=== PATIENT | male | born 1960 | race Caucasian/White ===

== ENCOUNTER 2017-04-15 19:15 | Inpatient (IN) | payer OTHER ==
[~2017-04-15] VITALS: Ht 167.6 cm; Wt 93.9 kg
[2017-04-15 19:19] VITALS: BP 151/94
--- NOTE | 2017-04-15 20:40 | NUR ---
PT TAKEN TO BED 6
--- NOTE | 2017-04-15 20:45 | NUR ---
PATIENT IS A 56 Y/O MALE WHO PRESENTS TO THE ED C/O VOMITING AND DIARRHEA X3 DAYS. PT STATES, "I CAN'T KEEP ANYTHING DOWN." PT DENIES NAUSEA, PAIN, CP, SOB AND FEVER. PT REPORTS CRAMPING SENSATION WHEN VOMITING. PT AAOX4, RR EVEN/UNLABORED. PT REPOSITIONED FOR COMFORT, BED IN LOWEST POSITION. ER MD DR. NEUMANN NOTIFIED. WILL CONTINUE TO MONITOR.
[2017-04-15] MEDS ORDERED: NACL 0.9% 1,000 ML IV ONE (21:00)
--- NOTE | 2017-04-15 21:00 | NUR ---
Dr. Flores evaluating patient at bedside.
[2017-04-15 21:24] LABS: HEMATOCRIT 49.7 % (36-52); HEMOGLOBIN 16.5 g/dL (12.0-18.0); MEAN CORPUSCULAR HEMOGLOBIN 30 pg (27-31); MEAN CORPUSCULAR HGB CONC 33 g/dL (33-37); MEAN CORPUSCULAR VOLUME 90 fL (80-94); PLATELET COUNT (AUTO) 296 K/uL (140-450); RED BLOOD CELL COUNT(AUTO) 5.55 MIL/uL (4.20-6.10); RED CELL DISTRIBUTION WIDTH 14.9 % (11.6-13.7); WHITE BLOOD COUNT (AUTO) 17.1 K/uL (4.8-10.8)
[2017-04-15 21:40] LABS: LYMPHOCYTES % (MANUAL) 1 % (20-46); MONOCYTES % (MANUAL) 8 % (5-12)
[2017-04-15 21:42] LABS: ANION GAP 12.1 (8-16); CARBON DIOXIDE 28.7 mmol/L (21-32); CREATININE 1.6 mg/dL (0.7-1.3); POTASSIUM 3.8 mmol/L (3.5-5.1)
[2017-04-15 21:48] LABS: ALBUMIN 3.9 g/dL (3.4-5.0); TOTAL BILIRUBIN 1.4 mg/dL (0.0-1.0)
[2017-04-15] MEDS ORDERED: DOCUSATE SODIUM 100 MG GELCAP PO PRN (22:40)
[2017-04-15] MEDS ORDERED: ACETAMINOPHEN 325 MG TAB PO PRN (22:40)
[2017-04-15] MEDS ORDERED: HYDROcodone/APAP 7.5/325 MG 1 TAB PO PRN (22:40)
[2017-04-15] MEDS ORDERED: MORPHINE SULFATE 2 MG/ML SYR IVP PRN (22:40)
--- NOTE | 2017-04-15 22:46 | NUR ---
Patient will be admitted to care of DR JOHNSON. Admited to TELE. Will go to room 119B. Belongings list completed. Report to WARREN BREWSTER.
[2017-04-15 22:50] VITALS: BP 146/90
--- NOTE | 2017-04-15 22:50 | NUR ---
PATIENT ADMITTED TO THE UNIT FOR OBSERVATION FROM THE ER. PATIENT IS ALERT, AWAKE, AND ORIENTED. PATIENT IS AMBULATORY. NO SIGNS AND SYMPTOMS OF DISTRESS NOTED. NO COMPLAINTS OF PAIN OR NAUSEA AT THIS TIME. IV SITE NOTED ON RIGHT AC, 18 GAUGE, SALINE LOCKED. PATIENT'S SKIN IS INTACT. BED IS IN LOWEST POSITION, SIDE RAILS UP AND CALL LIGHT WITHIN REACH. WILL CONTINUE TO MONITOR.
[2017-04-15 23:14] LABS: APPEARANCE,URINE CLOUDY (CLEAR); BILIRUBIN,URINE NEGATIVE (NEGATIVE); BLOOD, URINE NEGATIVE (NEGATIVE); COLOR,URINE YELLOW (YELLOW); LEUKOCYTE ESTERASE ,URINE NEGATIVE (NEGATIVE); NITRITE, URINE NEGATIVE (NEGATIVE); UGLUCOSE NEGATIVE (NEGATIVE)
[2017-04-15] MEDS: NACL 0.9% 1,000 ML IV SCH (23:19)
--- NOTE | 2017-04-15 23:20 | NUR ---
STARTED IVF- SODIUM CHLORIDE 0.9% 1000ML TO RUN AT 140ML/HR. IV SITE IS LOCATED ON RIGHT AC, 18 GAUGE. SITE IS ASYMPTOMATIC, INTACT, PATENT.
[2017-04-15 23:57] LABS: BARBITURATE, URINE NEG. ng/ml (NEG <=200); BENZODIAZEPINE, URINE NEG. ng/mL (NEG <=200); CANNABINOID, URINE NEG. ng/mL (NEG <=50); COCAINE, URINE NEG. ng/mL (NEG <=300); OPIATE, URINE NEG. ng/mL (NEG <=2000); PHENCYCLIDINE SCREEN,URINE NEG. ng/mL (NEG <=25)
[2017-04-16] VITALS: BP 143/85
[2017-04-16 00:17] LABS: RBC,URINE NONE SEEN /HPF (0-5); WBC,URINE NONE SEEN /HPF (0-5)
[2017-04-16 00:18] LABS: URINE AMORPHOUS URATE 4+ /HPF (None Seen)
[2017-04-16 00:25] LABS: CHOL/HDL RATIO 3.5 (1-4.5); FREE T4 (FREE THYROXINE) 0.8 ng/dL (0.76-1.46); MAGNESIUM 1.2 mg/dL (1.8-2.4); PHOSPHORUS 2.4 mg/dL (2.5-4.9); THYROID STIMULATING HORMONE 1.04 uIU/mL (0.34-3.74)
[2017-04-16 00:28] LABS: PROTHROMBIN TIME 11.2 secs (10.8-13.4)
[2017-04-16] MEDS ORDERED: MAG SULF 2000 MG/WATER PREMIX 50 ML IV ONE (02:30)
[2017-04-16] MEDS ORDERED: SODIUM PHOS / POTASSIUM PHOS 1 PKT PDR PO PRN (02:30)
--- NOTE | 2017-04-16 03:10 | NUR ---
MAGNESIUM SULFATE 2000MG/STERILE WATER PREMIX 50ML STARTED AT A RATE OF 25ML/HR, DUE TO MAGNESIUM LEVEL OF 1.2
[2017-04-16] MEDS ORDERED: LORazepam 2 MG/ML VIAL IVP PRN (03:15)
[2017-04-16] MEDS: ONDANSETRON 4 MG/2 ML VIAL IM/IVP PRN ×2 (03:18→08:25)
[2017-04-16 04:21] LABS: HEMATOCRIT 46.9 % (36-52); HEMOGLOBIN 15.3 g/dL (12.0-18.0); MEAN CORPUSCULAR HEMOGLOBIN 29 pg (27-31); MEAN CORPUSCULAR HGB CONC 33 g/dL (33-37); MEAN CORPUSCULAR VOLUME 89 fL (80-94); PLATELET COUNT (AUTO) 257 K/uL (140-450); RED BLOOD CELL COUNT(AUTO) 5.26 MIL/uL (4.20-6.10); RED CELL DISTRIBUTION WIDTH 15.1 % (11.6-13.7)
[2017-04-16 04:36] LABS: WHITE BLOOD COUNT (AUTO) 16.6 K/uL (4.8-10.8)
[2017-04-16 04:37] LABS: LYMPHOCYTES % (MANUAL) 5 % (20-46); MONOCYTES % (MANUAL) 4 % (5-12)
[2017-04-16] MEDS: LORazepam 1 MG TAB PO SCH ×3 (04:42→20:15)
[2017-04-16 04:46] LABS: ANION GAP 12.3 (8-16); CARBON DIOXIDE 25.9 mmol/L (21-32); CREATININE 1.4 mg/dL (0.7-1.3); POTASSIUM 3.2 mmol/L (3.5-5.1)
[2017-04-16 04:49] LABS: MAGNESIUM 1.8 mg/dL (1.8-2.4); PHOSPHORUS 3.3 mg/dL (2.5-4.9)
--- NOTE | 2017-04-16 05:10 | NUR ---
MAGNESIUM SULFATE 2000MG/STERILE WATER PREMIX 50ML FINISHED AT 0510
--- NOTE | 2017-04-16 06:52 | NUR ---
PATIENT PICKED UP AND TAKEN TO RADIOLOGY VIA WHEELCHAIR TO GET CT SCAN DONE.
[2017-04-16] MEDS ORDERED: metroNIDAZOLE 500 MG/NS PREMIX 100 ML IV SCH (06:55)
--- NOTE | 2017-04-16 07:26 | NUR ---
REPORT GIVEN AT BEDSIDE TO MORNING NURSE. PATIENT IS IN STABLE CONDITION.
--- NOTE | 2017-04-16 07:30 | NUR ---
RECEIVED REPORT FROM RN EMERGENCY ROOM RN. PATIENT IS AAOX4, HAS NS INFUSING AT 140 ML/HR TO RIGHT AC 18G. CLEAN DRY AND PATENT. LUNGS SOUNDS ARE CLEAR, BOWEL SOUNDS ARE ACTIVE. NO SIGNS AND SYMPTOMS OF ACUTE DISTRESS NOTED AT THIS TIME. REORIENTED PATIENT TO ROOM AND CALL LIGHT, VERBALIZED UNDERSTANDING. BED IN LOWEST POSITION, SIDERAILS UP X2, CALL LIGHT PLACED WITHIN REACH. WILL CONTINUE TO MONITOR.
[2017-04-16 08:00] VITALS: BP 136/93
[2017-04-16] MEDS: LEVOFLOXACIN 750 MG/D5W PREMIX 150 ML IV SCH (08:23)
[2017-04-16] MEDS: NACL 0.9% 1,000 ML IV SCH ×3 (08:23→20:20)
[2017-04-16] MEDS: MULTIVITAMIN 1 TAB PO SCH (08:24)
[2017-04-16] MEDS: THIAMINE 100 MG TAB PO SCH (08:24)
[2017-04-16] MEDS: FOLIC ACID 1 MG TAB PO SCH (08:25)
--- NOTE | 2017-04-16 09:55 | NUR ---
PATIENT HAS BEEN SCREENED AND CATEGORIZED HIGH NUTRITION RISK. PATIENT WILL BE SEEN WITHIN 1-2 DAYS OF ADMISSION. 04/16/17-04/17/[address]
--- NOTE | 2017-04-16 10:40 | NUR ---
PATIENT STATED THAT HE WAS STILL VOMITING. MADE DOCTOR AWARE.
--- NOTE | 2017-04-16 10:41 | NUR ---
CM NOTE INITIAL REVIEW FAXED TO [facility] [phone] MICHELE YARELIS EXT [phone]
[2017-04-16] MEDS ORDERED: METOCLOPRAMIDE 10 MG/2 ML INJ VIAL IVP PRN (11:10)
[2017-04-16 12:00] VITALS: BP 139/99
[2017-04-16] MEDS: metroNIDAZOLE 500 MG/NS PREMIX 100 ML IV SCH ×2 (12:44→20:16)
--- NOTE | 2017-04-16 12:57 | NUR ---
AT PATIENTS BEDSIDE WITH DR GOMEZ, PATIENT STATED HE IS STARTING TO FEEL BETTER. DR STATED HE WILL HAVE HIM START ON ORAL FLUIDS. WILL FOLLOW THROUGH WITH ORDERS.
[2017-04-16] MEDS ORDERED: POTASSIUM CHLORIDE 40 MEQ, LIDOCAINE 1% 25 MG in NACL 0.9% 250 ML IV SCH (14:00)
--- NOTE | 2017-04-16 14:28 | NUR ---
HUNG POTASSIUM, PATIENT ON TELE MONITOR. WILL CONTINUE TO MONITOR.
--- NOTE | 2017-04-16 14:51 | NUR ---
04/16/17 RD INITIAL ASSESSMENT COMPLETED PLEASE REFER TO NUTRITION ASSESSMENT UNDER CARE ACTIVITY FOR ESTIMATED NUTRITIONAL NEEDS. 1. CONTINUE NPO DIET 2. WHEN MEDICALLY FEASIBLE, INITIATE CLEAR LIQUID DIET AND ADVANCE TOLERATED TO CARDIAC 3. RD TO FOLLOW UP WITHIN2-3 DAYS; HIGH RISK LILIANA MEADOWS, TRENT
[2017-04-16 16:00] VITALS: BP 141/99
[2017-04-16] MEDS ORDERED: PANTOPRAZOLE 40 MG TABEC PO SCH (17:30)
--- NOTE | 2017-04-16 18:15 | NUR ---
PATIENT COMPLAINING OF STILL HAVING A LITTLE BIT OF DIARRHEA. NO SIGNS AND SYMPTOMS OF ACUTE DISTRESS NOTED AT THIS TIME.
--- NOTE | 2017-04-16 19:20 | NUR ---
ENDORSED PATIENT TO COMPLIANCE MANAGER RN FOR CONTINUITY OF CARE, IS AT THE BEDSIDE. PATIENT IN STABLE CONDITION.
--- NOTE | 2017-04-16 19:22 | NUR ---
RECEIVED REPORT FROM AM NURSE. PT IS AAOX4, NO SIGNS OF ACUTE DISTRESS NOTED. IS AT THE BEDSIDE. IV SITE IS ASYMPTOMATIC AND PATENT RUNNING NS. PLAN OF CARE DISCUSSED, PT VERBALIZED UNDERSTANDING. BED ON LOW POSITION, BILATERAL HALF SIDE RAILS UP, CALL LIGHT WITHIN REACH, WILL CONTINUE TO MONITOR PT.
[2017-04-16 20:00] VITALS: BP 141/99
[2017-04-17] VITALS (8 sets, daily range): BP systolic 137–158; BP diastolic 96–110
[2017-04-17] MEDS: LORazepam 1 MG TAB PO SCH ×3 (04:02→21:38)
[2017-04-17] MEDS: NACL 0.9% 1,000 ML IV SCH ×2 (04:03→08:00)
[2017-04-17] MEDS: metroNIDAZOLE 500 MG/NS PREMIX 100 ML IV SCH ×3 (04:03→21:38)
--- NOTE | 2017-04-17 04:15 | NUR ---
DR TERRAZAS NOTIFIED ABOUT PT HIGH BP 158/98. WILL AWAIT NEW ORDER.
--- NOTE | 2017-04-17 05:05 | NUR ---
NEW ORDER OF LISINOPRIL GIVEN TO PT FOR HIGH BLOOD PRESSURE, 158/98. PT TOLERATED WELL. WILL CONTINUE TO MONITOR.
[2017-04-17 05:19] LABS: BASOPHILS # (AUTO) 0.3 K/uL (0.00-0.22); EOSINOPHILS % (AUTO) 0.3 % (0.0-4.0); HEMATOCRIT 41.2 % (36-52); HEMOGLOBIN 13.3 g/dL (12.0-18.0); LYMPHOCYTES # (AUTO) 0.9 K/uL (2.0-11.5); LYMPHOCYTES % (AUTO) 14.3 % (20.5-51.1); MEAN CORPUSCULAR HEMOGLOBIN 29 pg (27-31); MEAN CORPUSCULAR HGB CONC 32 g/dL (33-37); MEAN CORPUSCULAR VOLUME 91 fL (80-94); MONOCYTES # (AUTO) 0.6 K/uL (0.8-1.0); MONOCYTES % (AUTO) 9.6 % (1.7-9.3); NEUTROPHILS # (AUTO) 4.8 K/uL (1.8-7.7); NEUTROPHILS % (AUTO) 71.8 % (42.2-75.2); PLATELET COUNT (AUTO) 208 K/uL (140-450); RED BLOOD CELL COUNT(AUTO) 4.53 MIL/uL (4.20-6.10); RED CELL DISTRIBUTION WIDTH 14.7 % (11.6-13.7); WHITE BLOOD COUNT (AUTO) 6.6 K/uL (4.8-10.8)
[2017-04-17] MEDS: LISINOPRIL 5 MG TAB PO SCH (05:29)
[2017-04-17 05:32] LABS: ANION GAP 8.4 (8-16); CREATININE 1.3 mg/dL (0.7-1.3); POTASSIUM 3.4 mmol/L (3.5-5.1)
[2017-04-17] MEDS: LEVOFLOXACIN 750 MG/D5W PREMIX 150 ML IV SCH (06:35)
--- NOTE | 2017-04-17 06:41 | NUR ---
LISINOPRIL GIVEN AT 0530 FOR HIGH BLOOD PRESSURE. REASSESS PT AFTER ADMINISTRATION OF LISINOPRIL FOR HIGH BP. NEW BLOOD PRESSURE READING IS 137/97. WILL CONTINUE TO MONITOR.
[2017-04-17 07:17] LABS: HEPATITIS A ANTIBODY IGM Negative (Negative); HEPATITIS B CORE AB TOTAL Negative (Negative); HEPATITIS B SURFACE AB Reactive (.); HEPATITIS B SURFACE ANTIGEN Negative (Negative)
[2017-04-17 07:17] LABS: T4 (THYROXINE) 4.7 ug/dL (4.5-12.0)
--- NOTE | 2017-04-17 07:27 | NUR ---
ENDORSED PT TO AM NURSE. PT IS IN STABLE CONDITION.
[2017-04-17 07:28] LABS: ALBUMIN 2.8 g/dL (3.4-5.0); BILIRUBIN,DIRECT 0.3 mg/dL (0.0-0.3)
--- NOTE | 2017-04-17 07:30 | NUR ---
RECEIVED REPORT FROM POOL FINISHER RN. PATIENT IS AAOX4. HAS NS INFUSING TO RIGHT AC AT 140ML/HR, SITE IS CLEAN, DRY, AND PATENT. NO SIGNS AND SYMPTOMS OF ACUTE DISTRESS NOTED AT THIS TIME. DISCUSSED PLAN OF CARE WITH PATIENT, HE VERBALIZED UNDERSTANDING. BED IN LOWEST POSITION, SIDERAILS UP X2, CALL LIGHT PLACED WITHIN REACH. WILL CONTINUE TO MONITOR.
--- NOTE | 2017-04-17 08:08 | NUR ---
MADE DR GOMEZ AWARE THAT PATIENTS BP WAS 149/101. WILL FOLLOW THROUGH WITH ORDERS. WILL CONTINUE TO MONITOR.
--- NOTE | 2017-04-17 08:16 | NUR ---
CM NOTE CONCURRENT REVIEW FAXED TO [facility] [phone] CM YARELIS EXT [id number] Addendum: 04/17/17 at 0822 by Zulma Rodríguez CM REF# [id number]
[2017-04-17] MEDS: MULTIVITAMIN 1 TAB PO SCH (08:43)
[2017-04-17] MEDS: THIAMINE 100 MG TAB PO SCH (08:43)
[2017-04-17] MEDS: PANTOPRAZOLE 40 MG TABEC PO SCH (08:43)
[2017-04-17] MEDS: FOLIC ACID 1 MG TAB PO SCH (08:43)
[2017-04-17] MEDS: LACTOBACILLUS RHAMNOSUS GG 1 EACH CAP PO SCH (08:43)
[2017-04-17] MEDS: LABETALOL 100 MG TAB PO SCH (08:44)
--- NOTE | 2017-04-17 08:44 | NUR ---
GAVE PATIENT LABETALOL 100 MG ORDERED FOR HIGH BP, WILL RECHECK BP. NO S/S OF DISTRESS NOTED AT THIS TIME. WILL CONTINUE TO MONITOR.
[2017-04-17] MEDS ORDERED: POTASSIUM CHLORIDE 40 MEQ, LIDOCAINE 1% 25 MG in NACL 0.9% 250 ML IV SCH (09:00)
[2017-04-17] MEDS ORDERED: PANTOPRAZOLE 40 MG INJ VIAL IVP SCH (09:00)
[2017-04-17] MEDS ORDERED: POTASSIUM CHLORIDE 10 MEQ TABER PO SCH (09:00)
[2017-04-17] MEDS ORDERED: LISINOPRIL 5 MG TAB PO SCH (09:00)
--- NOTE | 2017-04-17 09:34 | NUR ---
PATIENT BP IS 154/102. HAS NO S/S OF DISTRESS NOTED AT THIS TIME. MADE DR GOMEZ AWARE. WILL FOLLOW THROUGH WITH ORDERS.
--- NOTE | 2017-04-17 09:40 | NUR ---
ORDERED TO TRANSFER PATIENT FROM TELE TO MED SURG.
--- NOTE | 2017-04-17 09:42 | NUR ---
P.T. NOTES P.T. EVAL ORDER CANCELLED.
[2017-04-17] MEDS ORDERED: ENALAPRILAT 2.5 MG/2 ML VIAL IVP PRN (09:45)
--- NOTE | 2017-04-17 13:13 | NUR ---
STATING THAT HIS IV IN HIS RIGHT AC IS LEAKING, AND ACCIDENTALLY TUGGED ON IT. CATHETER IS INTACT, WILL REMOVE AND START A NEW IV. PATIENT HAS NO SIGNS AND SYMPTOMS OF DISTRESS NOTED AT THIS TIME.
--- NOTE | 2017-04-17 13:25 | NUR ---
STARTED A NEW IV ON PATIENTS LEFT WRIST, WITH 20G INFUSING NS AT 70 ML/HR. IV SITE IS CLEAN, DRY AND PATENT. CURRENTLY INFUSING POTASSIUM AT 68 ML/HR. WILL CONTINUE TO MONITOR.
--- NOTE | 2017-04-17 15:33 | NUR ---
REMOVED PATIENTS IV FROM LEFT WRIST DUE TO SLIGHT INFILTRATION. PATIENT STATED THAT IT HURT A LITTLE BIT. NO PHLEBITIS NOTED. CATHETER INTACT. APPLIED DRESSING, CLEAN AND DRY. WILL INSERT NEW IV TO CONTINUE FLUIDS.
--- NOTE | 2017-04-17 15:43 | NUR ---
IV STARTED TO RIGHT HAND. GOOD BLOOD RETURN, SECURED IV AND RECONNECTED FLUID. PATIENT HAS NO SIGN AND SYMPTOMS OF DISTRESS NOTED AT THIS TIME. WILL CONTINUE TO MONITOR.
--- NOTE | 2017-04-17 17:00 | NUR ---
IS AT THE BEDSIDE. ANSWERED ALL QUESTIONS THAT SHE HAD. WILL CONTINUE TO MONITOR PATIENT.
--- NOTE | 2017-04-17 19:17 | NUR ---
ENDORSED PATIENT TO TORTILLA MAKER RN FOR CONTINUITY OF CARE. PATIENT IN STABLE CONDITION.
--- NOTE | 2017-04-17 19:20 | NUR ---
RECEIVED REPORT FROM AM NURSE. PT FAMILY AT BEDSIDE. PT RESTING IN BED, AOX4, AMBULATORY, ABLE TO VERBALIZE NEEDS. PT DENIES CHEST PAIN, SOB OR S/S OF ACUTE DISTRESS. PT DENIES PAIN. PT DENIES N/V. PT C/O DIARRHEA IN THE AM, BUT STATED THAT HE FEELS THAT "IT IS GETTING BETTER." IV ACCESS ASYMPTOMATIC, PATENT AND INTACT. IVF INFUSING WELL. DISCUSSED AND REVIEWED PLAN OF CARE WITH PT. PT VERBALIZED UNDERSTANDING. ALL NEEDS MET. SAFETY MEASURES ENSURED. CALL LIGHT WITHIN REACH. WILL CONTINUE TO MONITOR.
--- NOTE | 2017-04-17 21:40 | NUR ---
ADMINISTERED DUE MEDS WITH EDUCATION. PT VERBALIZED UNDERSTANDING, TOLERATED MEDS WELL. ALL NEEDS MET. IVPB INFUSING WELL. SAFETY MEASURES ENSURED. CALL LIGHT WITHIN REACH. WILL CONTINUE TO MONITOR.
[2017-04-18] VITALS: BP 137/85
--- NOTE | 2017-04-18 00:10 | NUR ---
PT SLEEPING COMFORTABLY, AROUSABLE TO NAME. NO S/S OF ACUTE DISTRESS ALL NEEDS MET. IVF INFUSING WELL. SAFETY MEASURES ENSURED. CALL LIGHT WITHIN REACH. WILL CONTINUE TO MONITOR.
[2017-04-18] MEDS: NACL 0.9% 1,000 ML IV SCH ×2 (03:15→05:23)
[2017-04-18] MEDS: metroNIDAZOLE 500 MG/NS PREMIX 100 ML IV SCH (05:22)
[2017-04-18] MEDS: LORazepam 1 MG TAB PO SCH (05:23)
[2017-04-18] MEDS: LEVOFLOXACIN 750 MG/D5W PREMIX 150 ML IV SCH (06:43)
[2017-04-18 06:55] LABS: ANION GAP 10.7 (8-16); CARBON DIOXIDE 26.8 mmol/L (21-32); CREATININE 1.1 mg/dL (0.7-1.3); POTASSIUM 3.5 mmol/L (3.5-5.1)
--- NOTE | 2017-04-18 07:20 | NUR ---
RECEIVED PT FROM STUBBER NURSE AT BEDSIDE. PT IS A&OX4. PT HAS IV ON R HAND 22 G RUNNING NS@70ML/HR. PT HAS NO COMPLAINTS AT THIS TIME, STATED HE DID NOT HAVE DIARRHEA LAST NIGHT. CALL LIGHT WITHIN REACH. WILL CONTINUE TO MONITOR.
[2017-04-18 07:27] LABS: BASOPHILS # (AUTO) 0.2 K/uL (0.00-0.22); BASOPHILS % (AUTO) 2.3 % (0.0-2.0); EOSINOPHILS % (AUTO) 0.5 % (0.0-4.0); HEMATOCRIT 39.5 % (36-52); HEMOGLOBIN 13.2 g/dL (12.0-18.0); LYMPHOCYTES # (AUTO) 1.1 K/uL (2.0-11.5); LYMPHOCYTES % (AUTO) 16.3 % (20.5-51.1); MEAN CORPUSCULAR HEMOGLOBIN 30 pg (27-31); MEAN CORPUSCULAR HGB CONC 33 g/dL (33-37); MEAN CORPUSCULAR VOLUME 91 fL (80-94); MONOCYTES # (AUTO) 0.6 K/uL (0.8-1.0); NEUTROPHILS % (AUTO) 72.9 % (42.2-75.2); PLATELET COUNT (AUTO) 196 K/uL (140-450); RED BLOOD CELL COUNT(AUTO) 4.35 MIL/uL (4.20-6.10); RED CELL DISTRIBUTION WIDTH 14.6 % (11.6-13.7); WHITE BLOOD COUNT (AUTO) 6.9 K/uL (4.8-10.8)
[2017-04-18 08:00] VITALS: BP 136/92
[2017-04-18] MEDS: FOLIC ACID 1 MG TAB PO SCH (08:45)
[2017-04-18] MEDS: LISINOPRIL 5 MG TAB PO SCH (08:45)
[2017-04-18] MEDS: THIAMINE 100 MG TAB PO SCH (08:46)
[2017-04-18] MEDS: LABETALOL 100 MG TAB PO SCH (08:46)
[2017-04-18] MEDS: MULTIVITAMIN 1 TAB PO SCH (08:46)
[2017-04-18] MEDS: PANTOPRAZOLE 40 MG TABEC PO SCH (08:46)
[2017-04-18] MEDS: LACTOBACILLUS RHAMNOSUS GG 1 EACH CAP PO SCH (08:46)
--- NOTE | 2017-04-18 09:30 | NUR ---
PT IS SLEEPING COMFORTABLY IN BED. CALL LIGHT WITHIN REACH. WILL CONTINUE TO MONITOR.
--- NOTE | 2017-04-18 10:00 | NUR ---
04/18/2017 RD FOLLOW UP COMPLETED PLEASE REFER TO NUTRITION PROGRESS NOTE UNDER CARE ACTIVITY FOR ESTIMATED NUTRITION NEEDS. RD RECOMMENDATIONS: 1. CONTINUE ON REGULAR DIET TOLERATED. 2. CONSULT RDN PRN. 3. RD WILL F/U 5-7 DAYS; LOW RISK. MARYCARMEN LA MS, RDN
[2017-04-18] MEDS ORDERED: DOCU-299 PO (10:58)
[2017-04-18 11:18] VITALS: BP 136/92
--- NOTE | 2017-04-18 11:30 | NUR ---
GAVE DC INSTRUCTION TO PT. PT VERBALIZED UNDERSTANDING AND SIGNED ALL APPROPRIATE PAPERWORK. REMOVED IV CANNULA INTACT. ID BANDS REMOVED. CALL LIGHT WITHIN REACH. WILL CONTINUE TO MONITOR.
[2017-04-18] MEDS ORDERED: METO25TA PO (11:35)
--- NOTE | 2017-04-18 11:57 | NUR ---
WHEELED PT OUT OF HOSPITAL. PT IN STABLE CONDITION. TOOK ALL BELONGINGS.
== END 2017-04-18 11:57 | disposition home or self-care (01) | DRG 391 ==
LOC: MED 19:15 → MTU 22:43 → OBSVTOIN 04-16 09:49
PROVIDERS: ADMIT Family Medicine; ATTEND Family Medicine
DX: A08.4 Viral intestinal infection, unspecified (principal); N17.0 Acute kidney failure with tubular necrosis; K92.0 Hematemesis; E44.0 Moderate protein-calorie malnutrition; E83.39 Other disorders of phosphorus metabolism; E83.42 Hypomagnesemia; E78.5 Hyperlipidemia, unspecified; F10.20 Alcohol dependence, uncomplicated; E66.9 Obesity, unspecified; Z68.32 Body mass index [BMI] 32.0-32.9, adult; E87.6 Hypokalemia; K80.20 Calculus of gallbladder without cholecystitis without obstruction; I10 Essential (primary) hypertension; M16.11 Unilateral primary osteoarthritis, right hip
CPT/HCPCS: 36415; 71010; 76705; 80048; 80053; 80076; 80305; 81001; 82150; 83036; 83690; 83735; 83880; 84100; 84436; 84439; 84443; 84479; 85025; 85610; 85730; 86704; 86706; 86708; 86709; 86803; 87081; 87340; 99285; G0378; G0482; J1956; J2001; J2405; J2765; J3475; J3480; J3490; J7030; Q0092

== ENCOUNTER 2017-07-23 03:50 | Inpatient (IN) | payer SELFPAY ==
[~2017-07-23] VITALS: Ht 170.2 cm; Wt 90.7 kg
[~2017-07-23 03:50] MED LIST: DOCU-299 PO; METO25TA PO
[2017-07-23 03:57] VITALS: BP 144/98
--- NOTE | 2017-07-23 04:00 | NUR ---
PT C/O ABD PAIN SINCE 1 AM, PT HAS HAD N/V, ABD IS ROUND, SOFT, NON TENDER, ACTIVE BS X4. PT STATES LBM WAS TODAY AND WAS NORMAL. PT DENIES UTI SYMPTOMS.
--- NOTE | 2017-07-23 04:04 | NUR ---
PT TAKEN TO BED 3
[2017-07-23] MEDS ORDERED: NACL 0.9% 1,000 ML IV ONE (04:15)
[2017-07-23] MEDS ORDERED: ONDANSETRON 4 MG/2 ML VIAL IVP ONE (04:15)
[2017-07-23] MEDS ORDERED: KETOROLAC 30 MG/ML VIAL IVP ONE (04:15)
[2017-07-23 04:28] LABS: HEMATOCRIT 44.8 % (36-52); HEMOGLOBIN 14.5 g/dL (12.0-18.0); MEAN CORPUSCULAR HEMOGLOBIN 29 pg (27-31); MEAN CORPUSCULAR HGB CONC 32 g/dL (33-37); MEAN CORPUSCULAR VOLUME 91 fL (80-94); PLATELET COUNT (AUTO) 268 K/uL (140-450); RED BLOOD CELL COUNT(AUTO) 4.93 MIL/uL (4.20-6.10); RED CELL DISTRIBUTION WIDTH 13.1 % (11.6-13.7)
[2017-07-23 04:29] LABS: APPEARANCE,URINE CLEAR (CLEAR); BILIRUBIN,URINE NEGATIVE (NEGATIVE); BLOOD, URINE TRACE-I (NEGATIVE); COLOR,URINE YELLOW (YELLOW); LEUKOCYTE ESTERASE ,URINE 1+ (NEGATIVE); NITRITE, URINE NEGATIVE (NEGATIVE); PH,URINE 5.5 (5.0-9.0); UGLUCOSE NEGATIVE (NEGATIVE)
[2017-07-23 04:39] LABS: ANION GAP 16.2 (8-16); CREATININE 1.2 mg/dL (0.7-1.3); POTASSIUM 3.2 mmol/L (3.5-5.1)
[2017-07-23 04:44] LABS: ALBUMIN 3.4 g/dL (3.4-5.0); TOTAL BILIRUBIN 1.7 mg/dL (0.0-1.0)
[2017-07-23 04:52] LABS: WHITE BLOOD COUNT (AUTO) 17.3 K/uL (4.8-10.8)
[2017-07-23 04:53] LABS: LYMPHOCYTES % (MANUAL) 8 % (20-46); MONOCYTES % (MANUAL) 7 % (5-12)
--- NOTE | 2017-07-23 04:53 | NUR ---
PT RETURN FROM CT
[2017-07-23 04:54] LABS: RBC,URINE 3-10 (FEW) /HPF (0-5)
--- NOTE | 2017-07-23 05:55 | NUR ---
PT IN BED, SLEEPING, WILL CONTINUE TO MONITOR.
[2017-07-23] MEDS ORDERED: MORPHINE SULFATE 4 MG/ML SYR IVP ONE (06:20)
[2017-07-23] MEDS ORDERED: ONDANSETRON 4 MG/2 ML VIAL IVP PRN (06:30)
--- NOTE | 2017-07-23 07:00 | NUR ---
Admitted from ED , with chief complaint of ABDOMINAL PAIN AND VOMITING SINCE 12 MN LAST NIGHT. PT AAOX4. NO SOB NOTED. NO C/O PAIN AT THIS TIME. IV TO LT AC PATENT AND INTACT. CHEST CLEAR. ABDOMEN SOFT, BOWEL SOUNDS PRESENT. NO EDEMA NOTED. SKIN INTACT. PT IS A 56 y/o ,Male, Cooperative,oriented to call light, bed, phone,television, bathroom, smoking policy,visiting hours, procedures, ID bracelet on. Belongings list checked. INSTRUCTED PT TO CALL FOR ASSISTANCE, CALL LIGHT WITHIN REACH. PT VERBALIZED UNDERSTANDING.
--- NOTE | 2017-07-23 07:03 | NUR ---
Patient will be admitted to care of DR TADEO. Admited to TELE. Will go to room 115. Belongings list completed. Report to HIPOLITO.
[2017-07-23 07:13] LABS: BARBITURATE, URINE NEG. ng/ml (NEG <=200); BENZODIAZEPINE, URINE NEG. ng/mL (NEG <=200); CANNABINOID, URINE NEG. ng/mL (NEG <=50); COCAINE, URINE NEG. ng/mL (NEG <=300); OPIATE, URINE NEG. ng/mL (NEG <=2000); PHENCYCLIDINE SCREEN,URINE NEG. ng/mL (NEG <=25)
[2017-07-23 07:15] VITALS: BP 157/107
[2017-07-23 07:22] LABS: CHOL/HDL RATIO 3.3 (1-4.5); FREE T4 (FREE THYROXINE) 1.11 ng/dL (0.76-1.46); MAGNESIUM 1.9 mg/dL (1.8-2.4); PHOSPHORUS 2.7 mg/dL (2.5-4.9); THYROID STIMULATING HORMONE 1.9 uIU/mL (0.34-3.74)
[2017-07-23 08:14] LABS: PROTHROMBIN TIME 10.2 secs (10.8-13.4)
[2017-07-23] MEDS: NACL 0.9% 1,000 ML IV SCH ×2 (08:41→12:06)
--- NOTE | 2017-07-23 08:59 | NUR ---
PATIENT HAS BEEN SCREENED AND CATEGORIZED LOW NUTRITION RISK. PATIENT WILL BE SEEN WITHIN 7 DAYS OF ADMISSION. 07/29/[address]
[2017-07-23] MEDS: DOCUSATE SODIUM 100 MG GELCAP PO SCH ×2 (09:00→20:24)
--- NOTE | 2017-07-23 09:00 | NUR ---
[facility]SA SWAB COLLECTED AND SENT TO LAB.
[2017-07-23] MEDS: HYDROmorphone PFS 2 MG/ML SYR IVP PRN ×3 (09:24→22:04)
[2017-07-23] MEDS ORDERED: KETOROLAC 30 MG/ML VIAL IM PRN (10:05)
[2017-07-23] MEDS ORDERED: POTASSIUM CHLORIDE 40 MEQ, LIDOCAINE 1% 25 MG in NACL 0.9% 250 ML IV SCH (10:30)
[2017-07-23 12:00] VITALS: BP 155/104
[2017-07-23] MEDS: PIPER/TAZO 3.375GM/D5W PREMIX 50 ML IV SCH ×3 (12:38→23:02)
--- NOTE | 2017-07-23 13:00 | NUR ---
PT SEEN BY DR. Matthew JEFFERSON WITH NEW ORDERS.
[2017-07-23] MEDS ORDERED: LOSARTAN 50 MG TAB PO SCH (14:00)
[2017-07-23] MEDS: POTASSIUM CHLORIDE 10 MEQ in LACTATED RINGERS 1,000 ML IV SCH ×2 (14:55→20:23)
[2017-07-23 16:00] VITALS: BP 160/99
--- NOTE | 2017-07-23 16:30 | NUR ---
PT RESTING. NO SOB NOTED. NO SIGNS OF PAIN.
--- NOTE | 2017-07-23 19:07 | NUR ---
DR. VIDAL HERE TO SEE PT. ENDORSED TO NEXT SHIFT NURSE FOR CONTINUITY OF CARE.
--- NOTE | 2017-07-23 19:20 | NUR ---
RECEIVED PT AWAKE ON BED WITH AT BEDSIDE, COMPLAINING OF ABDOMINAL PAIN, WILL MEDICATE PRN, VITAL SIGNS TAKEN, BP ELEVATED, DENIES CHEST PAIN, NO SOB NOTED, MAINTAINED ON NPO EXCEPT MEDS, IVF INFUSING WELL, PLAN OF CARE DISCUSSED, MAINTAINED ON CONTACT ISOLATION, CALL LIGHT WITHIN REACH.
[2017-07-23] MEDS: KETOROLAC 30 MG/ML VIAL IVP PRN (19:40)
--- NOTE | 2017-07-23 19:40 | NUR ---
PT ASKING FOR DILAUDID, MADE AWARE THAT ITS TIME YET, TORADOL IVP GIVEN FOR PAIN, WILL REASSESS, ALL NEEDS ATTENDED.
[2017-07-23 20:00] VITALS: BP 166/97
--- NOTE | 2017-07-23 20:30 | NUR ---
VERBALIZED PAIN SUBSIDING, REFUSED DUE COLACE, RISK AND BENEFITS EXPLAINED BUT STILL REFUSED SAID "I DON'T HAVE A PROBLEM WITH MY STOOL", AMBULATED TO WITH STEADY GAIT, MONITORED CLOSELY.
--- NOTE | 2017-07-23 21:21 | NUR ---
DR OLMOS MADE AWARE OF ELEVATED BP, PT WAS IN PAIN DURING VITAL SIGNS TAKING, MADE AWARE OF PAIN MED Q6H PRN, SHE WILL CHANGE IT TO Q4H PRN, WILL CARRY OUT ORDERS.
[2017-07-24] VITALS: BP 151/104
[2017-07-24] MEDS: HYDROmorphone PFS 2 MG/ML SYR IVP PRN ×5 (01:57→20:23)
[2017-07-24] MEDS: POTASSIUM CHLORIDE 10 MEQ in LACTATED RINGERS 1,000 ML IV SCH ×3 (02:00→19:41)
[2017-07-24 04:00] VITALS: BP 162/100
[2017-07-24] MEDS: KETOROLAC 30 MG/ML VIAL IVP PRN (05:27)
[2017-07-24] MEDS: PIPER/TAZO 3.375GM/D5W PREMIX 50 ML IV SCH ×4 (05:29→23:48)
--- NOTE | 2017-07-24 05:30 | NUR ---
PT COMPLAINING OF PAIN, DILAUDID NOT YET DUE, CAN'T WAIT FOR DILAUDID, GAVE TORADOL IVP FOR PAIN, DR VIRGEN CAME IN THE ROOM AND CHECKED ON PT, UPDATED ON PT'S CONDITION, MADE AWARE OF ELEVATED BLOOD PRESSURE, SHE SAID WILL WAIT ON HOW HE RESPOND TO COZAAR AND BECAUSE ALSO HE IS IN PAIN, IV ANTIBIOTIC ADMINISTERED, MAINTAINED ON NPO EXCEPT MEDS, MONITORED CLOSELY.
--- NOTE | 2017-07-24 07:10 | NUR ---
PT SITTING ON BEDSIDE CHAIR, NO DISTRESS NOTED, BEDSIDE REPORT GIVEN TO NARCISA LANGFORD FOR CONTINUITY OF CARE. Addendum: 07/24/17 at 0723 by Pablito Chacon RN CHARTED ON WRONG PT
--- NOTE | 2017-07-24 07:15 | NUR ---
PT SLEEPING, NO SIGNS OF DISTRESS, REPORT GIVEN TO RN HIPOLITO FOR CONTINUITY OF CARE.
[2017-07-24 07:20] LABS: BASOPHILS % (AUTO) 0.2 % (0.0-2.0); EOSINOPHILS % (AUTO) 0.1 % (0.0-4.0); HEMATOCRIT 41.1 % (36-52); HEMOGLOBIN 13.7 g/dL (12.0-18.0); LYMPHOCYTES # (AUTO) 0.4 K/uL (2.0-11.5); LYMPHOCYTES % (AUTO) 3.4 % (20.5-51.1); MEAN CORPUSCULAR HEMOGLOBIN 30 pg (27-31); MEAN CORPUSCULAR HGB CONC 33 g/dL (33-37); MEAN CORPUSCULAR VOLUME 90 fL (80-94); MONOCYTES # (AUTO) 1.3 K/uL (0.8-1.0); MONOCYTES % (AUTO) 10.2 % (1.7-9.3); NEUTROPHILS # (AUTO) 11.1 K/uL (1.8-7.7); NEUTROPHILS % (AUTO) 86.1 % (42.2-75.2); PLATELET COUNT (AUTO) 212 K/uL (140-450); RED BLOOD CELL COUNT(AUTO) 4.56 MIL/uL (4.20-6.10); RED CELL DISTRIBUTION WIDTH 13.7 % (11.6-13.7); WHITE BLOOD COUNT (AUTO) 12.8 K/uL (4.8-10.8)
--- NOTE | 2017-07-24 07:30 | NUR ---
RECEIVED ON BED AAOX4. NO SOB NOTED. NO C/O PAIN AT THIS TIME. IV TO LT AC PATENT AND INTACT. CHEST DIMINISHED AIR ENTRY TO THE BASES. ABDOMEN SOFT, BOWEL SOUNDS PRESENT. NO EDEMA NOTED. NPO MAINTAINED, PLAN OF CARE DISCUSSED. INSTRUCTED PT TO CALL FOR ASSISTANCE, CALL LIGHT WITHIN REACH, PT VERBALIZED UNDERSTANDING.
[2017-07-24 07:49] LABS: ANION GAP 15.6 (8-16); POTASSIUM 3.6 mmol/L (3.5-5.1)
[2017-07-24 07:50] LABS: CREATININE 1.2 mg/dL (0.7-1.3)
[2017-07-24 07:52] LABS: ALBUMIN 2.9 g/dL (3.4-5.0); BILIRUBIN,DIRECT 0.9 mg/dL (0.0-0.3); TOTAL BILIRUBIN 1.7 mg/dL (0.0-1.0)
[2017-07-24 08:00] VITALS: BP 150/105
[2017-07-24] MEDS: ATORVASTATIN 20 MG TAB PO SCH (08:17)
[2017-07-24] MEDS: DOCUSATE SODIUM 100 MG GELCAP PO SCH ×2 (08:17→20:22)
[2017-07-24] MEDS: LACTOBACILLUS RHAMNOSUS GG 1 EACH CAP PO SCH (08:18)
[2017-07-24] MEDS: LOSARTAN 50 MG TAB PO SCH ×2 (08:18→20:23)
[2017-07-24 08:24] LABS: AMYLASE 572 U/L (25-115); LIPASE 3746 U/L (73-393)
[2017-07-24] MEDS ORDERED: LOSARTAN 50 MG TAB PO SCH (09:00)
[2017-07-24 09:08] LABS: LACTATE DEHYDROGENASE 192 IU/L (121-224)
--- NOTE | 2017-07-24 09:30 | NUR ---
PT RESTING. NO SOB NOTED. NO SIGNS OF PAIN.
[2017-07-24 09:41] LABS: MAGNESIUM 1.7 mg/dL (1.8-2.4)
--- NOTE | 2017-07-24 11:30 | NUR ---
PT RESTING. NO SOB NOTED. NO SIGNS OF PAIN.
[2017-07-24 12:00] VITALS: BP 156/99
--- NOTE | 2017-07-24 12:40 | NUR ---
PT SEEN BY DR. VIDAL WITH NEW ORDER.
[2017-07-24 16:00] VITALS: BP 151/105
--- NOTE | 2017-07-24 16:00 | NUR ---
PT'S LATEST BP : 151/105 MMHG; PT C/O ABDOMINAL PAIN 7/10 ON THE PAIN SCALE. WILL MEDICATE PT WITH PAIN MEDS. DR. VIRGEN NOTIFIED.
--- NOTE | 2017-07-24 16:15 | NUR ---
PT SIGNED THE CONSENT FOR SURGERY EXPLAINED BY DR. VIDAL AT THE BEDSIDE EARLIER. PT VERBALIZED UNDERSTANDING.
[2017-07-24] MEDS ORDERED: MAG SULF 2000 MG/WATER PREMIX 50 ML IV SCH (17:00)
--- NOTE | 2017-07-24 19:18 | NUR ---
PT AWAKE, TALKING TO AT THE BEDSIDE. NO SOB NOTED. NO C/O PAIN AT THIS TIME. ENDORSED TO NEXT SHIFT NURSE FOR CONTINUITY OF CARE.
--- NOTE | 2017-07-24 19:20 | NUR ---
RECEIVED REPORT FROM DAY SHIFT NURSE. AAOX4. AT BEDSIDE. NO C/O PAIN AT THIS TIME. IV TO LEFT AC #18G, PATENT AND INTACT. DISCUSSED PLAN OF CARE, PT AND VERBALIZED UNDERSTANDING. WILL CONTINUE TO MONITOR. CALL LIGHT WITHIN REACH.
--- NOTE | 2017-07-24 19:28 | NUR ---
DR. VIDAL CALLED AND STATED THAT PT'S SURGERY IS POSTPONED ON THURSDAY AT 1200 NOON. TRE BREWSTER ASSIGNED TO THE NIGHT MADE AWARE AND WILL INFORM PT.
--- NOTE | 2017-07-24 19:30 | NUR ---
INFORMED PT AND THAT DR. VIDAL CALLED AND SURGERY WILL BE ON THURSDAY AT 1200. PT SAID "OK".
[2017-07-24 20:00] VITALS: BP 154/100
--- NOTE | 2017-07-24 20:21 | NUR ---
PT C/O ABDOMINAL PAIN 8/10 ON PAIN SCALE. WILL MEDICATE PT.
--- NOTE | 2017-07-24 22:30 | NUR ---
PT IN BED, WATCHING TV. NO C/O PAIN AT THIS TIME. CALL LIGHT WITHIN REACH.
[2017-07-25] VITALS: BP 162/104
[2017-07-25] MEDS: HYDROmorphone PFS 2 MG/ML SYR IVP PRN ×2 (00:02→05:11)
--- NOTE | 2017-07-25 00:03 | NUR ---
V/S TAKEN. BP 162/104, HR 79, RR 18, O2 SAT 94%. PT C/O ABDOMINAL PAIN 02/12. REPORTED V/S TO DR. OLMOS. NO NEW ORDER. DILAUDID 1 MG IVP GIVEN ORDERED FOR PAIN.
--- NOTE | 2017-07-25 00:03 | NUR ---
V/S TAKEN. BP 162/104, HR 79, RR 18, O2 SAT 94%. PT C/O ABDOMINAL PAIN 02/12. REPORTED V/S TO DR. OLMOS. NO NEW ORDER. DILAUDID 0.5 MG IVP GIVEN ORDERED FOR PAIN. Addendum: 07/25/17 at 0018 by Teto Agustin RN ERROR
--- NOTE | 2017-07-25 01:50 | NUR ---
PT SLEEPING, AROUSES EASILY. NO S/S OF DISTRESS NOTED. CALL LIGHT WITHIN REACH.
--- NOTE | 2017-07-25 03:50 | NUR ---
PT SLEEPING. NO S/S OF PAIN OR DISCOMFORT. CALL LIGHT WITHIN REACH.
[2017-07-25 04:00] VITALS: BP 158/98
[2017-07-25] MEDS: POTASSIUM CHLORIDE 10 MEQ in LACTATED RINGERS 1,000 ML IV SCH ×3 (05:02→14:09)
[2017-07-25] MEDS: PIPER/TAZO 3.375GM/D5W PREMIX 50 ML IV SCH ×4 (05:04→23:42)
--- NOTE | 2017-07-25 05:15 | NUR ---
PT C/O ABDOMINAL PAIN 8/10 ON PAIN SCALE. DILAUDID 1 MG IVP GIVEN. DAVID LIGHT WITHIN REACH. WILL CONTINUE TO MONITOR.
--- NOTE | 2017-07-25 07:05 | NUR ---
ENDORSED PT TO DAY SHIFT NURSE. PT IN STABLE CONDITION.
--- NOTE | 2017-07-25 07:06 | NUR ---
RECEIVED REPORT FROM COACH TOUR DRIVER NURSE, MARLENE, AT BEDSIDE FOR CONTINUITY OF CARE. AAOX4. NO C/O PAIN AT THIS TIME. IV TO LEFT AC #18G, PATENT AND INTACT RUNNING POTASSIUM CHLORIDE 10MEQ IN LACTATED RINGERS AT 130 ML/HR. DISCUSSED PLAN OF CARE, PT VERBALIZED UNDERSTANDING. SAFETY PRECAUTIONS IN PLACE, CALL LIGHT WITHIN REACH. WILL CONTINUE TO MONITOR.
[2017-07-25 07:36] LABS: HEMATOCRIT 38.3 % (36-52); HEMOGLOBIN 12.8 g/dL (12.0-18.0); MEAN CORPUSCULAR HEMOGLOBIN 30 pg (27-31); MEAN CORPUSCULAR HGB CONC 34 g/dL (33-37); MEAN CORPUSCULAR VOLUME 89 fL (80-94); PLATELET COUNT (AUTO) 212 K/uL (140-450); RED BLOOD CELL COUNT(AUTO) 4.29 MIL/uL (4.20-6.10); RED CELL DISTRIBUTION WIDTH 13.5 % (11.6-13.7); WHITE BLOOD COUNT (AUTO) 12.2 K/uL (4.8-10.8)
[2017-07-25 08:00] VITALS: BP 150/115
[2017-07-25 08:58] LABS: ANION GAP 11.4 (8-16); CARBON DIOXIDE 28.4 mmol/L (21-32); CREATININE 1.1 mg/dL (0.7-1.3); POTASSIUM 3.8 mmol/L (3.5-5.1)
[2017-07-25 09:11] LABS: LYMPHOCYTES % (MANUAL) 8 % (20-46); MONOCYTES % (MANUAL) 8 % (5-12)
[2017-07-25] MEDS: ATORVASTATIN 20 MG TAB PO SCH (09:27)
[2017-07-25] MEDS: LACTOBACILLUS RHAMNOSUS GG 1 EACH CAP PO SCH (09:27)
[2017-07-25] MEDS: DOCUSATE SODIUM 100 MG GELCAP PO SCH ×2 (09:28→20:08)
[2017-07-25] MEDS: LOSARTAN 50 MG TAB PO SCH (09:28)
--- NOTE | 2017-07-25 09:28 | NUR ---
ADMINISTERED MORNING MEDICATIONS, PATIENT TOLERATED THEM WELL. NO SIGNS OF DISTRESS OR SOB NOTED. PATIENT DENIES PAIN AT THIS TIME. SAFETY PRECAUTIONS IN PLACE, CALL LIGHT WITHIN REACH,WILL CONTINUE TO MONITOR PATIENT.
--- NOTE | 2017-07-25 10:24 | NUR ---
LAB CALLED WITH BLOOD CULTURES POSITIVE FOR ECOLI AND MDRO.
[2017-07-25] MEDS: KETOROLAC 30 MG/ML VIAL IVP PRN ×2 (10:25→22:24)
--- NOTE | 2017-07-25 10:25 | NUR ---
PATIENT COMPLAINED OF ABD PAIN 12/13. TORADOL IVP PRN GIVEN. PATIENT TOLERATED IT WELL. SAFETY AND ISOLATION PRECAUTION IN PLACE, BED ON LOWEST SETTING, CALL LIGHT WITHIN REACH. WILL CONTINUE TO MONITOR PATIENT.
[2017-07-25 11:15] LABS: PROTHROMBIN TIME 10.8 secs (10.8-13.4)
[2017-07-25 12:00] VITALS: BP 165/111
[2017-07-25 12:10] LABS: ALBUMIN 2.7 g/dL (3.4-5.0); MAGNESIUM 2.5 mg/dL (1.8-2.4); PHOSPHORUS 3.4 mg/dL (2.5-4.9); TOTAL BILIRUBIN 1.4 mg/dL (0.0-1.0)
[2017-07-25] MEDS ORDERED: LOSARTAN 50 MG TAB PO SCH (13:06)
--- NOTE | 2017-07-25 13:15 | NUR ---
PATIENT RESTING, FAMILY AT BEDSIDE. SAFETY AND ISOLATION PRECAUTION IN PLACE, BED ON LOWEST SETTING, CALL LIGHT WITHIN REACH. WILL CONTINUE TO MONITOR PATIENT.
[2017-07-25 16:00] VITALS: BP 162/106
--- NOTE | 2017-07-25 16:45 | NUR ---
PATIENT'S BLOOD PRESSURE 162/106 REPORTED TO MD. WILL AWAIT NEW ORDERS ABOUT ELEVATED BLOOD PRESSURE. SAFETY AND ISOLATION PRECAUTION IN PLACE, BED ON LOWEST SETTING, CALL LIGHT WITHIN REACH. WILL CONTINUE TO MONITOR PATIENT.
--- NOTE | 2017-07-25 17:15 | NUR ---
PATIENT RESTING AND WATCHING TV, AT BEDSIDE. NO SIGNS OF DISTRESS OR SOB NOTED. PATIENT DENIES PAIN. SAFETY AND ISOLATION PRECAUTION IN PLACE, BED ON LOWEST SETTING, CALL LIGHT WITHIN REACH. WILL CONTINUE TO MONITOR PATIENT.
[2017-07-25] MEDS: ISOSORBIDE DINITRATE 10 MG TAB PO SCH (17:26)
[2017-07-25] MEDS: hydrALAZINE 25 MG TAB PO SCH (17:27)
--- NOTE | 2017-07-25 19:15 | NUR ---
REPORT GIVEN TO ELECTRONIC INTELLIGENCE OFFICER RN AT BEDSIDE FOR CONTINUITY OF CARE. PATIENT IN STABLE CONDITION.
--- NOTE | 2017-07-25 19:50 | NUR ---
PATIENT IS CURRENTLY AWAKE ALERT ORIENTED SITTING AT THE EDGE OF THE BED WATCHING TV. PATIENT DENIES PAIN AT THIS TIME.PATIENT AMBULATES WELL TO THE BATHROOM AND BACK TO BED.IVF INFUSING WELL IV SITE PATENT NO INFILTRATION NOTED.CALL LIGHT WITHIN REACH.WILL CONTINUE TO OBSERVE.
[2017-07-25 20:00] VITALS: BP 145/91
[2017-07-25] MEDS: FAMOTIDINE 20 MG TAB PO SCH (20:08)
--- NOTE | 2017-07-25 20:09 | NUR ---
PATIENT STABLE RESTING IN BED WATCHING TV EDUCATION GIVEN ON HIS ROUTINE NIGHT MEDS PATIENT VERBALIZES UNDERSTANDING AND TOOK HIS MEDS.
--- NOTE | 2017-07-25 20:30 | NUR ---
PATIENT REPORT RECEIVED FROM SHELL REPRINT OPERATOR: SAMUEL MAYNARD AT BEDSIDE FOR CONTINUITY OF CARE. PATIENT IS RESTING COMFORTABLY IN BED WATCHING TV. NO SIGNS AND SYMPTOMS OF DISTRESS NOTED NO COMPLAINTS OF PAIN AT THIS TIME. IV SITE NOTED ON LEFT AC, IVF INFUSING WELL. BED IN LOWEST POSITION, SIDE RAILS UP AND CALL LIGHT WITHIN REACH. WILL CONTINUE TO MONITOR.
--- NOTE | 2017-07-25 21:10 | NUR ---
PATIENT STABLE REPORT ENDORSED TO NARCISA SANTIAGO SHE WILL RESUME CARE OF THE PATIENT.
--- NOTE | 2017-07-25 23:30 | NUR ---
CALLED PHARMACY TO VERIFY IF OK TO PIGGYBACK ZOSYN TO LACTATED RINGER WITH 10MEQ OF POTASSIUM. PHARMACY SAID THAT IT IS NOT ADVISED. WILL PIGGYBACK ZOSYN TO NS.
[2017-07-26] VITALS: BP 144/90
[2017-07-26] MEDS: POTASSIUM CHLORIDE 10 MEQ in LACTATED RINGERS 1,000 ML IV SCH ×3 (03:16→18:05)
[2017-07-26 04:00] VITALS: BP 150/98
--- NOTE | 2017-07-26 04:00 | NUR ---
CHECKED ON PATIENT. PATIENT IS ASLEEP. NO SIGNS AND SYMPTOMS OF DISTRESS NOTED. BREATHING EVEN AND UNLABORED. BED IN LOWEST POSITION, SIDE RAILS UP AND CALL LIGHT WITHIN REACH. WILL CONTINUE TO MONITOR.
[2017-07-26] MEDS: PIPER/TAZO 3.375GM/D5W PREMIX 50 ML IV SCH ×4 (05:01→23:25)
[2017-07-26] MEDS: KETOROLAC 30 MG/ML VIAL IVP PRN ×2 (05:05→21:44)
--- NOTE | 2017-07-26 07:06 | NUR ---
PATIENT REPORT GIVEN TO MORNING NURSE AT BEDSIDE. PATIENT IS IN STABLE CONDITION.
--- NOTE | 2017-07-26 07:07 | NUR ---
RECEIVED REPORT FROM DISTRIBUTION DISPATCHER NURSE AT BEDSIDE FOR CONTINUITY OF CARE. PATIENT SLEEPING, NO SIGNS OF DISTRESS OR SOB NOTED. BREATHING EVEN AND UNLABORED. IV TO LEFT AC #18G, PATENT AND INTACT IVF INFUSING AT 130 ML/HR. SAFETY AND ISOLATION PRECAUTIONS IN PLACE, CALL LIGHT WITHIN REACH. WILL CONTINUE TO MONITOR.
[2017-07-26 07:23] LABS: AMYLASE 91 U/L (25-115); LIPASE 556 U/L (73-393)
[2017-07-26 07:33] LABS: MAGNESIUM 2.2 mg/dL (1.8-2.4); PHOSPHORUS 3.3 mg/dL (2.5-4.9)
[2017-07-26 07:38] LABS: ALBUMIN 2.3 g/dL (3.4-5.0); ANION GAP 10.1 (8-16); CARBON DIOXIDE 28.5 mmol/L (21-32); POTASSIUM 3.6 mmol/L (3.5-5.1)
[2017-07-26 07:39] LABS: BASOPHILS % (AUTO) 0.3 % (0.0-2.0); EOSINOPHILS # (AUTO) 0.1 K/uL (0-0.4); EOSINOPHILS % (AUTO) 0.6 % (0.0-4.0); HEMOGLOBIN 11.2 g/dL (12.0-18.0); LYMPHOCYTES # (AUTO) 1.1 K/uL (2.0-11.5); LYMPHOCYTES % (AUTO) 12.2 % (20.5-51.1); MEAN CORPUSCULAR HEMOGLOBIN 30 pg (27-31); MEAN CORPUSCULAR HGB CONC 34 g/dL (33-37); MEAN CORPUSCULAR VOLUME 90 fL (80-94); MONOCYTES # (AUTO) 0.9 K/uL (0.8-1.0); MONOCYTES % (AUTO) 10.1 % (1.7-9.3); NEUTROPHILS # (AUTO) 7.2 K/uL (1.8-7.7); NEUTROPHILS % (AUTO) 76.8 % (42.2-75.2); PLATELET COUNT (AUTO) 215 K/uL (140-450); RED BLOOD CELL COUNT(AUTO) 3.67 MIL/uL (4.20-6.10); RED CELL DISTRIBUTION WIDTH 13.1 % (11.6-13.7); WHITE BLOOD COUNT (AUTO) 9.3 K/uL (4.8-10.8)
[2017-07-26 08:00] VITALS: BP 154/105
[2017-07-26] MEDS: DOCUSATE SODIUM 100 MG GELCAP PO SCH ×2 (09:00→21:00)
[2017-07-26] MEDS: ISOSORBIDE DINITRATE 10 MG TAB PO SCH ×4 (09:12→17:44)
[2017-07-26] MEDS: FAMOTIDINE 20 MG TAB PO SCH ×2 (09:12→21:43)
[2017-07-26] MEDS: LACTOBACILLUS RHAMNOSUS GG 1 EACH CAP PO SCH (09:12)
[2017-07-26] MEDS: hydrALAZINE 25 MG TAB PO SCH ×3 (09:12→17:44)
[2017-07-26] MEDS: ATORVASTATIN 20 MG TAB PO SCH (09:13)
[2017-07-26] MEDS: LOSARTAN 50 MG TAB PO SCH (09:13)
--- NOTE | 2017-07-26 09:16 | NUR ---
ADMINISTERED MORNING MEDICATIONS, PATIENT TOLERATED THEM WELL. DOCTORS IN TO SEE THE PATIENT. UPDATED PATIENT WITH PLAN OF CARE, PATIENT VERBALIZED UNDERSTANDING. NO SIGNS OF DISTRESS, PATIENT DENIES PAIN. SAFETY AND ISOLATION PRECAUTIONS IN PLACE, CALL LIGHT WITHIN REACH, WILL CONTINUE TO MONITOR PATIENT.
--- NOTE | 2017-07-26 10:00 | NUR ---
PATIENT RESTING AND WATCHING TV. NO SIGNS OF DISTRESS. PATIENT DENIES PAIN. REASSESSMENT OF BP, 138/79. SAFETY AND ISOLATION PRECAUTIONS IN PLACE, CALL LIGHT WITHIN REACH. WILL CONTINUE TO MONITOR PATIENT.
[2017-07-26 12:00] VITALS: BP 143/92
--- NOTE | 2017-07-26 12:05 | NUR ---
ADMINISTERED ORDERED MEDICATIONS. PATIENT TOLERATED IT WELL. NO SIGNS OF DISTRESS NOTED. PATIENT DENIES PAIN. SAFETY AND ISOLATION PRECAUTION IN PLACE. CALL LIGHT WITHIN REACH. WILL CONTINUE TO MONITOR PATIENT.
[2017-07-26] MEDS: ACETAMINOPHEN 325 MG TAB PO PRN (15:24)
--- NOTE | 2017-07-26 15:24 | NUR ---
PATIENT COMPLAINED OF HEADACHE. BP 138/65. TYLENOL PRN ADMINISTERED. PATIENT TOLERATED IT WELL. SAFETY AND ISOLATION PRECAUTION IN PLACE. CALL LIGHT WITHIN REACH. WILL CONTINUE TO MONITOR PATIENT.
[2017-07-26 16:00] VITALS: BP 133/88
--- NOTE | 2017-07-26 17:44 | NUR ---
ADMINISTERED ORDERED MEDICATIONS. BP 136/89. PATIENT TOLERATED IT WELL. AT BEDSIDE. NO SIGNS OF DISTRESS. PATIENT DENIES PAIN. SAFETY AND ISOLATION PRECAUTION IN PLACE. CALL LIGHT WITHIN REACH. WILL CONTINUE TO MONITOR PATIENT.
--- NOTE | 2017-07-26 18:15 | NUR ---
ULTRA SOUND TECHS IN TO DO US OF KIDNEYS. WILL AWAIT RESULTS. PATIENT SHOWS NO SIGNS OF DISTRESS, DENIES PAIN. AT BEDSIDE. SAFETY AND ISOLATION PRECAUTION IN PLACE. CALL LIGHT WITHIN REACH. WILL CONTINUE TO MONITOR PATIENT.
--- NOTE | 2017-07-26 19:10 | NUR ---
REPORT GIVEN TO MANAGER CHANGE RN AT BEDSIDE FOR CONTINUITY OF CARE. PATIENT IN STABLE CONDITION.
--- NOTE | 2017-07-26 19:11 | NUR ---
PATIENT REPORT RECEIVED FROM MORNING NURSE AT BEDSIDE. PATIENT RESTING IN BED. NO SIGNS AND SYMPTOMS OF DISTRESS NOTED. NO COMPLAINTS OF PAIN AT THIS TIME. IV SITE ON LEFT AC LEAKING. TURNED OFF IVF AND DISCONTINUED IV SITE. IV CANNULA INTACT. WILL REINSERT NEW IV SITE. BED IN LOWEST POSITION, SIDE RAILS UP AND CALL LIGHT WITHIN REACH. WILL CONTINUE TO MONITOR.
[2017-07-26 20:00] VITALS: BP 141/86
--- NOTE | 2017-07-26 20:30 | NUR ---
PATIENT REFUSED COLACE, PATIENT STATED THAT HE HAD 3 BOWEL MOVEMENTS TODAY.
--- NOTE | 2017-07-26 21:00 | NUR ---
NEW IV SITE STARTED ON LEFT FOREARM, 18 GAUGE. PATIENT TOLERATED WELL.
[2017-07-27] VITALS (12 sets, daily range): BP systolic 120–170; BP diastolic 63–98
[2017-07-27] MEDS: POTASSIUM CHLORIDE 10 MEQ in LACTATED RINGERS 1,000 ML IV SCH ×3 (01:49→17:54)
[2017-07-27] MEDS: ACETAMINOPHEN 325 MG TAB PO PRN ×2 (04:42→10:35)
[2017-07-27] MEDS: PIPER/TAZO 3.375GM/D5W PREMIX 50 ML IV SCH ×2 (06:00→16:44)
[2017-07-27 06:30] LABS: BASOPHILS # (AUTO) 0.1 K/uL (0.00-0.22); BASOPHILS % (AUTO) 1.4 % (0.0-2.0); EOSINOPHILS % (AUTO) 0.7 % (0.0-4.0); HEMATOCRIT 32.6 % (36-52); HEMOGLOBIN 11.1 g/dL (12.0-18.0); LYMPHOCYTES # (AUTO) 1.1 K/uL (2.0-11.5); LYMPHOCYTES % (AUTO) 15.2 % (20.5-51.1); MEAN CORPUSCULAR HEMOGLOBIN 31 pg (27-31); MEAN CORPUSCULAR HGB CONC 34 g/dL (33-37); MEAN CORPUSCULAR VOLUME 90 fL (80-94); MONOCYTES # (AUTO) 0.7 K/uL (0.8-1.0); MONOCYTES % (AUTO) 9.7 % (1.7-9.3); NEUTROPHILS # (AUTO) 5.1 K/uL (1.8-7.7); PLATELET COUNT (AUTO) 221 K/uL (140-450); RED BLOOD CELL COUNT(AUTO) 3.64 MIL/uL (4.20-6.10)
[2017-07-27 07:16] LABS: CARBON DIOXIDE 27.4 mmol/L (21-32); POTASSIUM 3.4 mmol/L (3.5-5.1)
[2017-07-27 07:17] LABS: PHOSPHORUS 3.3 mg/dL (2.5-4.9)
--- NOTE | 2017-07-27 07:25 | NUR ---
PATIENT REPORT GIVEN TO MORNING NURSE AT BEDSIDE. PATIENT IS IN STABLE CONDITION.
--- NOTE | 2017-07-27 07:30 | NUR ---
PATIENT IS AAOX4 AND SHOWS NO S/S OF ACUTE DISTRESS ON ROOM AIR. ON TELE MONITOR. IV NOTED ON THE LEFT FOREARM WITH IVF'S INFUSING WELL. SKIN IS INTACT, DENIES PAIN. PATIENT WAS EXPLAINED TO USE THE CALL LIGHT FOR ASSISTANCE, HOSPITAL ENVIRONMENT, AND POC. PATIENT SAFETY AND CONTACT PRECAUTIONS ARE IN PLACE. BED IN LOW POSITION WITH CALL LIGHT WITHIN REACH.
[2017-07-27] MEDS ORDERED: POTASSIUM CHLORIDE 20% 40 MEQ/15 ML UDC PO SCH ×3 (07:40→23:00)
[2017-07-27 07:42] LABS: PROTHROMBIN TIME 10.5 secs (10.8-13.4)
[2017-07-27] MEDS: ATORVASTATIN 20 MG TAB PO SCH (08:26)
[2017-07-27] MEDS: LOSARTAN 50 MG TAB PO SCH (08:27)
[2017-07-27] MEDS: LACTOBACILLUS RHAMNOSUS GG 1 EACH CAP PO SCH (08:27)
[2017-07-27] MEDS: ISOSORBIDE DINITRATE 10 MG TAB PO SCH ×3 (08:27→16:44)
[2017-07-27] MEDS: DOCUSATE SODIUM 100 MG GELCAP PO SCH ×2 (08:28→21:00)
[2017-07-27] MEDS: hydrALAZINE 25 MG TAB PO SCH ×3 (08:28→16:43)
[2017-07-27] MEDS: FAMOTIDINE 20 MG TAB PO SCH ×2 (08:28→21:00)
--- NOTE | 2017-07-27 08:30 | NUR ---
ADMINISTERED SCHEDULED MEDICATIONS, PATIENT SWALLOWED WITHOUT DIFFICULTY. PATIENT UNABLE TO TAKE POTASSIUM 20 MEQ PO ONCE DUE TO MEDICATION NEEDING TO BE MIXED WITH 120ML OF WATER, PATIENT IS NPO EXCEPT MEDS, DR VIRGEN AWARE AND STATED OKAY TO GIVE MEDICATION FOR AFTER SURGERY. ALL NEEDS MET AT THIS TIME.
--- NOTE | 2017-07-27 10:30 | NUR ---
PATIENT C/O HEADACHE AND WAS GIVEN TYLENOL 650 MG PO, PATIENT'S NEEDS MET AT THIS TIME. PATIENT SITTING IN CHAIR AND SHOWS NO S/S OF ACUTE DISTRESS ON ROOM AIR.
--- NOTE | 2017-07-27 11:40 | NUR ---
PATIENT LEFT TO PROCEDURE IN STABLE CONDITION.
[2017-07-27] MEDS ORDERED: fentaNYL 0.05 MG/ML VIAL ONE (12:16)
[2017-07-27] MEDS ORDERED: HYDROmorphone PFS 2 MG/ML SYR ONE (12:16)
[2017-07-27] MEDS ORDERED: BUPIVACAINE-MPF 0.25% 30 ML VIAL INJ ONE (12:19)
[2017-07-27] MEDS ORDERED: GLYCOPYRROLATE 0.2 MG/ML VIAL IV ONE (12:41)
[2017-07-27] MEDS ORDERED: KETOROLAC 30 MG/ML VIAL IVP ONE (12:41)
[2017-07-27] MEDS ORDERED: ONDANSETRON 4 MG/2 ML VIAL IVP ONE (12:41)
[2017-07-27] MEDS ORDERED: PHENYLEPHRINE 10 MG/ML VIAL IV ONE (12:41)
[2017-07-27] MEDS ORDERED: ROCURONIUM 50 MG/5 ML VIAL IV ONE (12:41)
[2017-07-27] MEDS ORDERED: PROPOFOL 200 MG/20 ML VIAL IV ONE (12:41)
[2017-07-27] MEDS ORDERED: DESFLURANE 240 ML BTL INH ONE (12:41)
[2017-07-27] MEDS ORDERED: HYDROmorphone 1 MG/ML AMP IVP PRN (12:50)
[2017-07-27] MEDS ORDERED: ONDANSETRON 4 MG/2 ML VIAL IVP PRN (12:50)
[2017-07-27] MEDS ORDERED: THROMBIN KIT 20 MU VIAL TP ONE (14:09)
[2017-07-27] MEDS ORDERED: hydrALAZINE 20 MG/ML VIAL IVP PRN (14:45)
[2017-07-27 15:07] LABS: BASOPHILS # (AUTO) 0.1 K/uL (0.00-0.22); BASOPHILS % (AUTO) 0.9 % (0.0-2.0); EOSINOPHILS % (AUTO) 0.5 % (0.0-4.0); HEMOGLOBIN 11.7 g/dL (12.0-18.0); LYMPHOCYTES % (AUTO) 10.1 % (20.5-51.1); MEAN CORPUSCULAR HEMOGLOBIN 30 pg (27-31); MEAN CORPUSCULAR HGB CONC 34 g/dL (33-37); MEAN CORPUSCULAR VOLUME 88 fL (80-94); MONOCYTES # (AUTO) 0.3 K/uL (0.8-1.0); MONOCYTES % (AUTO) 3.3 % (1.7-9.3); NEUTROPHILS # (AUTO) 8.3 K/uL (1.8-7.7); NEUTROPHILS % (AUTO) 85.2 % (42.2-75.2); PLATELET COUNT (AUTO) 251 K/uL (140-450); RED BLOOD CELL COUNT(AUTO) 3.86 MIL/uL (4.20-6.10); RED CELL DISTRIBUTION WIDTH 13.3 % (11.6-13.7); WHITE BLOOD COUNT (AUTO) 9.7 K/uL (4.8-10.8)
[2017-07-27] MEDS ORDERED: hydrALAZINE 20 MG/ML VIAL ONE (15:28)
[2017-07-27 15:34] LABS: ALBUMIN 2.5 g/dL (3.4-5.0); ANION GAP 9.3 (8-16); CARBON DIOXIDE 28.4 mmol/L (21-32); POTASSIUM 3.7 mmol/L (3.5-5.1); TOTAL BILIRUBIN 0.7 mg/dL (0.0-1.0)
--- NOTE | 2017-07-27 15:55 | NUR ---
PATIENT ARRIVED BACK ON UNIT FROM PROCEDURE, NOTED 3 ABD DRX CLEAN DRY AND INTACT JOHNATHAN DRAIN WITH MINIMAL BRIGHT RED BLOOD DRAINING. PATIENT STATES, 10 ABD PAIN AT SURGICAL SITE HOWEVER PATIENT IS AWARE HE CANNOT HAVE PAIN MEDICATIONS D/T HIDA SCAN SCHEDULED FOR LATER TONIGHT. PATIENT'S AT BEDSIDE. DR VIRGEN IS AWARE OF PATIENT'S BP AND MEDICATIONS GIVEN IN OR. DR HELTONAYED NOT TO GIVE PAST DUE MEDICATION SINCE PATIENT WAS IN PROCEDURE AND RECEIVED BP MEDICATIONS THERE. SCHEDULED HYDRALAZINE 25 MG PO AND ISORDIL 20 MG PO FOR 1700 WILL BE GIVEN.
--- NOTE | 2017-07-27 16:15 | NUR ---
DR VIDAL WAS CALLED AND WAS GIVEN LATEST CBC AND BMP VALUES.
[2017-07-27] MEDS: PIPERACILLIN/TAZOBACTAM 3.375 GM in DEXTROSE 5% 50 ML IV SCH (16:44)
--- NOTE | 2017-07-27 16:45 | NUR ---
ADMINISTERED SCHEDULED MEDICATIONS, PATIENT SWALLOWED WITHOUT DIFFICULTY. IV ABX INFUSING WELL. ALL NEEDS MET AT THIS TIME.
[2017-07-27] MEDS: KETOROLAC 30 MG/ML VIAL IM PRN (17:56)
--- NOTE | 2017-07-27 18:06 | NUR ---
ADMINISTERED PAIN MEDICATION TORADOL 30 MG IM FOR ABD PAIN 12/13. WILL REASSESS PAIN IN 30 MIN.
--- NOTE | 2017-07-27 19:10 | NUR ---
PATIENT REPORT GIVEN AT BEDSIDE TO NIGHT NURSE. PATIENT ENDORSED IN STABLE CONDITION.
--- NOTE | 2017-07-27 19:30 | NUR ---
RECEIVED REPORT FROM AM NURSE. PT AT BEDSIDE. PT RESTING IN BED, AOX4, AMBULATORY, ABLE TO VERBALIZE NEEDS. SPO2 94% ON ROOM AIR, RR 20 EVEN AND UNLABORED, PT ENCOURAGED TO USE IS. PT IS S/P LAP ROENY WITH JOHNATHAN DRAINING, 15ML SEROSANGUINOUS DRAINAGE. ABD DRESSINGS CLEAN DRY AND INTACT. PT C/O ABD PAIN, PT ALREADY MEDICATED BY AM NURSE, WILL MONITOR. PT REMAINING NPO AND NO OPIOID MEDS PER AM NURSE AT THIS TIME FOR NM HIDA SCAN. DISCUSSED AND REVIEWED PLAN OF CARE WITH PT AND PT'S . PT VERBALIZED UNDERSTANDING. IV ACCESS ASYMPTOMATIC, PATENT AND INTACT. IVF INFUSING WELL. ALL NEEDS MET. SAFETY MEASURES ENSURED. CALL LIGHT WITHIN REACH.
[2017-07-27] MEDS: HYDROmorphone PFS 2 MG/ML SYR IVP PRN (21:40)
--- NOTE | 2017-07-27 21:43 | NUR ---
PT KEPT NPO FOR HIDA SCAN, PT ALSO REFUSED DUE MEDS COLACE PO AND PEPCID PO DESPITE EDUCATION, PT STATED "I DON'T NEED THAT." PT REPORTED THAT DR JEFFERSON CAME IN AND STATED THAT PT DOES NOT NEED HIDA SCAN. CALLED DR YOUNG MD STATED THAT HIDA SCAN SHOULD BE DONE. REPORTED 10ML SEROSANGUINOUS DRAINAGE FROM JOHNATHAN LAST SHIFT AND 15ML SEROSANGUINOUS DRAINAGE AT THIS TIME. PER NM TECH, PT CAN RECEIVE OPIOID MEDICATION, STATED THAT IT IS OK TO GIVE DILAUDID 2MG IVP PRN. ADMINISTERED DILAUDID 2MG IVP PRN ORDERED WITH EDUCATION. PT VERBALIZED UNDERSTANDING, TOLERATED MED WELL. PT TO BE ASSISTED TO HAVE NM HIDA SCAN BY TECH. ALL NEEDS MET. SAFETY MEASURES ENSURED. CALL LIGHT WITHIN REACH.
--- NOTE | 2017-07-27 22:10 | NUR ---
ASSISTED PT TO WHEELCHAIR WITH MINIMAL ASSIST, PT REPORTS REDUCED ABD PAIN FROM DILAUDID IVP PRN. PT OFF TO NM HIDA SCAN ACCOMPANIED BY TECH.
--- NOTE | 2017-07-27 22:31 | NUR ---
ENDORSED PLAN OF CARE TO CONTINUING PM NURSE. PT NOT AT BEDSIDE AT THIS TIME, PT AT MA HIDA SCAN.
--- NOTE | 2017-07-27 22:32 | NUR ---
RECEIVED REPORT FROM GENERAL PRACTICE NURSE. PT OUT OF THE UNIT.
--- NOTE | 2017-07-27 23:35 | NUR ---
PT CAME BACK FROM HIDA SCAN. NO DISTRESS NOTED.
[2017-07-28] MEDS: PIPERACILLIN/TAZOBACTAM 3.375 GM in DEXTROSE 5% 50 ML IV SCH ×3 (00:18→12:58)
--- NOTE | 2017-07-28 02:00 | NUR ---
PT SLEEPING, EASILY AROUSABLE. NO S/S OF PAIN OR DISCOMFORT. CALL LIGHT WITHIN REACH.
[2017-07-28] MEDS: POTASSIUM CHLORIDE 10 MEQ in LACTATED RINGERS 1,000 ML IV SCH ×2 (03:20→11:03)
[2017-07-28 04:00] VITALS: BP 149/93
--- NOTE | 2017-07-28 04:30 | NUR ---
PT RESTING IN BED WITH EYES CLOSED. EASILY AROUSABLE. RESPIRATIONS REGULAR, EVEN AND UNLABORED. NO S/S OF DISTRESS. CALL LIGHT WITHIN REACH.
[2017-07-28] MEDS: HYDROmorphone PFS 2 MG/ML SYR IVP PRN ×2 (04:51→09:11)
[2017-07-28 06:44] LABS: BASOPHILS # (AUTO) 0.1 K/uL (0.00-0.22); EOSINOPHILS % (AUTO) 0.2 % (0.0-4.0); HEMATOCRIT 37.6 % (36-52); HEMOGLOBIN 12.4 g/dL (12.0-18.0); LYMPHOCYTES % (AUTO) 10.1 % (20.5-51.1); MEAN CORPUSCULAR HEMOGLOBIN 30 pg (27-31); MEAN CORPUSCULAR HGB CONC 33 g/dL (33-37); MEAN CORPUSCULAR VOLUME 90 fL (80-94); MONOCYTES # (AUTO) 0.7 K/uL (0.8-1.0); MONOCYTES % (AUTO) 7.9 % (1.7-9.3); NEUTROPHILS # (AUTO) 7.6 K/uL (1.8-7.7); NEUTROPHILS % (AUTO) 80.8 % (42.2-75.2); PLATELET COUNT (AUTO) 262 K/uL (140-450); RED BLOOD CELL COUNT(AUTO) 4.18 MIL/uL (4.20-6.10); RED CELL DISTRIBUTION WIDTH 13.5 % (11.6-13.7); WHITE BLOOD COUNT (AUTO) 9.4 K/uL (4.8-10.8)
--- NOTE | 2017-07-28 07:10 | NUR ---
ENDORSED PT TO DAY SHIFT NURSE. PT IN STABLE CONDITION.
--- NOTE | 2017-07-28 07:11 | NUR ---
RECEIVED REPORT FROM SERVICE DESK AGENT NURSE AT BEDSIDE FOR CONTINUITY OF CARE. PT RESTING IN BED, AOX4, AMBULATORY, ABLE TO VERBALIZE NEEDS. BREATHING EVEN AND UNLABORED, PT IS S/P LAP RONEY WITH JOHNATHAN DRAINING. ABD DRESSINGS CLEAN, DRY, AND INTACT. PATIENT DENIES PAIN. IV TO LFA #18G, ACCESS ASYMPTOMATIC, PATENT AND INTACT, IVF INFUSING WELL. ALL NEEDS MET. SAFETY MEASURES ENSURED. CALL LIGHT WITHIN REACH.
[2017-07-28 07:18] LABS: MAGNESIUM 1.8 mg/dL (1.8-2.4); PHOSPHORUS 3.6 mg/dL (2.5-4.9)
[2017-07-28 07:48] LABS: ALBUMIN 2.4 g/dL (3.4-5.0); ANION GAP 11.5 (8-16); CARBON DIOXIDE 26.3 mmol/L (21-32); CREATININE 0.9 mg/dL (0.7-1.3); POTASSIUM 3.8 mmol/L (3.5-5.1); TOTAL BILIRUBIN 0.8 mg/dL (0.0-1.0)
[2017-07-28 08:00] VITALS: BP 148/103
[2017-07-28] MEDS: ATORVASTATIN 20 MG TAB PO SCH (08:35)
[2017-07-28] MEDS: ISOSORBIDE DINITRATE 10 MG TAB PO SCH ×3 (08:35→16:40)
[2017-07-28] MEDS: LACTOBACILLUS RHAMNOSUS GG 1 EACH CAP PO SCH (08:35)
[2017-07-28] MEDS: DOCUSATE SODIUM 100 MG GELCAP PO SCH (08:36)
[2017-07-28] MEDS: LOSARTAN 50 MG TAB PO SCH (08:36)
[2017-07-28] MEDS: FAMOTIDINE 20 MG TAB PO SCH (08:36)
[2017-07-28] MEDS: hydrALAZINE 25 MG TAB PO SCH ×3 (08:36→16:39)
--- NOTE | 2017-07-28 08:36 | NUR ---
DUE MEDICATIONS GIVEN. PATIENT TOLERATED IT WELL. NO SIGNS OF DISTRESS NOTED. PATIENT DENIES PAIN. SAFETY AND ISOLATION PRECAUTIONS IN PLACE. CALL LIGHT WITHIN REACH. WILL CONTINUE TO MONITOR PATIENT.
[2017-07-28] MEDS ORDERED: HYDROmorphone PFS 2 MG/ML SYR IVP PRN (09:35)
[2017-07-28] MEDS ORDERED: SIMETHICONE 80 MG TAB.CHEW PO PRN (10:05)
--- NOTE | 2017-07-28 10:40 | NUR ---
DR. VIRGEN IN TO SEE THE PATIENT TO EXPLAIN UPDATED PLAN OF CARE. PATIENT VERBALIZED UNDERSTANDING. SAFETY AND ISOLATION PRECAUTIONS IN PLACE. CALL LIGHT WITHIN REACH. WILL CONTINUE TO MONITOR PATIENT.
[2017-07-28] MEDS: KETOROLAC 30 MG/ML VIAL IM PRN ×2 (11:08→18:20)
--- NOTE | 2017-07-28 12:45 | NUR ---
PATIENT EATING LUNCH. TOLERATING THE FULL LIQUID DIET WELL. NO SIGNS OF DISTRESS NOTED. PATIENT DENIES PAIN. SAFETY AND ISOLATION PRECAUTIONS IN PLACE. CALL LIGHT WITHIN REACH. WILL CONTINUE TO MONITOR PATIENT.
[2017-07-28] MEDS: HYDROcodone/APAP 7.5/325 MG 1 TAB PO PRN ×2 (13:05→16:41)
--- NOTE | 2017-07-28 13:05 | NUR ---
DUE MEDICATIONS AND NORCO PRN D/T ABDOMINAL PAIN 5/10 ADMINISTERED. PATIENT TOLERATED THEM WELL. JOHNATHAN DRAINED 20 CC OF SEROSANGUINEOUS FLUIDS. SAFETY AND ISOLATION PRECAUTIONS IN PLACE. CALL LIGHT WITHIN REACH. WILL CONTINUE TO MONITOR PATIENT.
[2017-07-28] MEDS ORDERED: LOSA100T1 PO (13:31)
[2017-07-28] MEDS ORDERED: NITR100C7 PO (13:31)
[2017-07-28] MEDS ORDERED: FAMO20TA13 PO (13:31)
[2017-07-28] MEDS ORDERED: AMOX-999 PO (13:31)
[2017-07-28] MEDS ORDERED: DOCU-299 PO (13:31)
[2017-07-28] MEDS ORDERED: HYDR-4420 PO (13:31)
[2017-07-28] MEDS ORDERED: ISOS10TA9 PO (13:31)
[2017-07-28] MEDS ORDERED: ACET-2858 PO (13:31)
[2017-07-28] MEDS ORDERED: SIME80CT27 PO (13:31)
[2017-07-28] MEDS ORDERED: LACT10CA PO (13:31)
[2017-07-28] MEDS ORDERED: ACET-1182 PO (13:31)
[2017-07-28] MEDS ORDERED: IBUP-2213 PO (13:31)
[2017-07-28] MEDS ORDERED: ATOR20TA40 PO (13:31)
[2017-07-28 16:00] VITALS: BP 150/88
--- NOTE | 2017-07-28 16:41 | NUR ---
DUE MEDICATIONS ADMINISTERED. NORCO PRN ALSO GIVEN FOR 6/10 PAIN D/T ABDOMINAL INCISIONS FROM S/P LAP CHOLY. PATIENT TOLERATED IT WELL. SAFETY AND ISOLATION PRECAUTIONS IN PLACE. CALL LIGHT WITHIN REACH. WILL CONTINUE TO MONITOR PATIENT.
--- NOTE | 2017-07-28 17:05 | NUR ---
SHELLI ROSEN DRAIN REMOVED. 70 CC OF SANGUINEOUS FLUID REMOVED. PATIENT TOLERATED THE PROCEDURE BUT IS IN PAIN. WILL ASSESS AND MEDICATE NEEDED. SAFETY AND ISOLATION PRECAUTIONS IN PLACE. CALL LIGHT WITHIN REACH. WILL CONTINUE TO MONITOR PATIENT.
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
--- NOTE | 2017-07-28 18:45 | NUR ---
DISCHARGE INSTRUCTIONS AND EDUCATION GIVEN TO PATIENT AND SPOUSE AT BEDSIDE. IV REMOVED, CANNULA INTACT. ID BANDS CUT. PATIENT WILL GET DRESSED AND GET READY FOR DISCHARGE. SAFETY AND ISOLATION PRECAUTIONS IN PLACE. CALL LIGHT WITHIN REACH. WILL CONTINUE TO MONITOR PATIENT.
--- NOTE | 2017-07-28 19:15 | NUR ---
PATIENT WHEELED OFF FLOOR BY RAILROAD TRACK REPAIR SUPERVISOR. PATIENT IN STABLE CONDITION.
== END 2017-07-28 19:15 | disposition home or self-care (01) | DRG 853 ==
LOC: MED 03:50 → MTU 06:37
PROVIDERS: ADMIT Family Medicine Sports Medicine; ATTEND Family Medicine Sports Medicine
PROC: 0DNW4ZZ Release Peritoneum, Percutaneous Endoscopic Approach (ICD-10-PCS; 2017-07-27)
PROC: 0FT44ZZ Resection of Gallbladder, Percutaneous Endoscopic Approach (ICD-10-PCS; principal; 2017-07-27 12:00)
DX: A41.9 Sepsis, unspecified organism (principal); K85.10 Biliary acute pancreatitis without necrosis or infection; N17.0 Acute kidney failure with tubular necrosis; E43 Unspecified severe protein-calorie malnutrition; E87.0 Hyperosmolality and hypernatremia; E87.8 Other disorders of electrolyte and fluid balance, not elsewhere classified; N39.0 Urinary tract infection, site not specified; K80.00 Calculus of gallbladder with acute cholecystitis without obstruction; J98.11 Atelectasis; R65.20 Severe sepsis without septic shock; E87.6 Hypokalemia; I10 Essential (primary) hypertension; I16.0 Hypertensive urgency; R74.0 Nonspecific elevation of levels of transaminase and lactic acid dehydrogenase [LDH]; E80.6 Other disorders of bilirubin metabolism; K66.0 Peritoneal adhesions (postprocedural) (postinfection); D64.9 Anemia, unspecified; E83.42 Hypomagnesemia; R73.03 Prediabetes; E78.5 Hyperlipidemia, unspecified; E66.9 Obesity, unspecified; Z68.31 Body mass index [BMI] 31.0-31.9, adult
CPT/HCPCS: 36415; 71045; 76705; 78445; 80048; 80053; 80076; 80305; 81001; 82140; 82150; 83036; 83605; 83625; 83690; 83735; 83880; 84100; 84439; 84443; 84484; 85025; 85610; 85730; 86886; 86900; 86901; 87040; 87081; 87086; 87186; 93005; 93976; 96361; 96374; 96375; 99285; C1887; J0360; J1170; J1885; J2001; J2270; J2370; J2405; J2543; J2704; J3010; J3475; J3480; J3490; J7030; J7060; J7120; Q0092

== ENCOUNTER 2017-10-22 11:53 | Emergency (ER) | payer OTHER ==
[~2017-10-22] VITALS: Ht 170.2 cm; Wt 83.6 kg
[~2017-10-22 11:53] MED LIST changes: +ACET-1182 PO; +ACET-2858 PO; +AMOX-999 PO; +ATOR20TA40 PO; +FAMO20TA13 PO; +HYDR-4420 PO; +IBUP-2213 PO; +ISOS10TA9 PO; +LACT10CA PO; +LOSA100T1 PO; -METO25TA PO; +NITR100C7 PO; +SIME80CT27 PO
[2017-10-22 11:58] VITALS: BP 106/60
--- NOTE | 2017-10-22 12:04 | NUR ---
PT AMBULATES TO CHAIR B
--- NOTE | 2017-10-22 12:10 | NUR ---
PT COMES TO ED C/O N/V/D FOR 2 DAYS, DENIES FEVER OR ABD PAIN. VSS, AMBUATES WITH NORMAL GAIT, NO N/V DURING ASSESSMENT OBSERVED.
[2017-10-22] MEDS ORDERED: ONDANSETRON 4 MG ODT SL PRN (12:25)
[2017-10-22] MEDS ORDERED: LOPERAMIDE 2 MG CAP PO ONE (12:25)
[2017-10-22 13:04] VITALS: BP 133/89
--- NOTE | 2017-10-22 13:05 | NUR ---
Patient discharged with v/s stable. Written and verbal after care instructions given and explained. Patient alert, oriented and verbalized understanding of instructions. Ambulatory with steady gait. All questions addressed prior to discharge. ID band removed. Patient advised to follow up with PMD. Rx of ZOFRAN ODT, IMMODIUM given. Patient educated on indication of medication including possible reaction and side effects. Opportunity to ask questions provided and answered.
== END 2017-10-22 13:05 | disposition home or self-care (01) ==
LOC: MED 11:53
DX: A08.4 Viral intestinal infection, unspecified (principal); I10 Essential (primary) hypertension; E78.00 Pure hypercholesterolemia, unspecified
CPT/HCPCS: 99283; S0119

== ENCOUNTER 2017-10-26 11:41 | Inpatient (IN) | payer OTHER ==
[~2017-10-26] VITALS: Ht 167.6 cm; Wt 86.8 kg
[2017-10-26 11:41] VITALS: BP 51/27
--- NOTE | 2017-10-26 11:42 | NUR ---
PT RHONDA AGUILARS FOR ETOH TO BED 1
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
[2017-10-26 12:26] LABS: BASOPHILS % (AUTO) 0.2 % (0.0-2.0); HEMATOCRIT 31.2 % (36-52); HEMOGLOBIN 10.4 g/dL (12.0-18.0); LYMPHOCYTES # (AUTO) 0.9 K/uL (2.0-11.5); LYMPHOCYTES % (AUTO) 8.5 % (20.5-51.1); MEAN CORPUSCULAR HEMOGLOBIN 29 pg (27-31); MEAN CORPUSCULAR HGB CONC 33 g/dL (33-37); MEAN CORPUSCULAR VOLUME 87.2 fL (80-94); MONOCYTES % (AUTO) 9.4 % (1.7-9.3); NEUTROPHILS # (AUTO) 8.5 K/uL (1.8-7.7); NEUTROPHILS % (AUTO) 81.9 % (42.2-75.2); PLATELET COUNT (AUTO) 158 K/uL (140-450); RED BLOOD CELL COUNT(AUTO) 3.58 MIL/uL (4.20-6.10); RED CELL DISTRIBUTION WIDTH 15.3 % (11.6-13.7); WHITE BLOOD COUNT (AUTO) 10.4 K/uL (4.8-10.8)
[2017-10-26] MEDS ORDERED: NACL 0.9% 1,000 ML IV ONE ×2 (12:35→13:15)
--- NOTE | 2017-10-26 12:35 | NUR ---
PT TO CT SCAN AT THIS TIME ACCOMPANIED BY METAL BED ASSEMBLER AND NARCISA MARTIN.
[2017-10-26 12:39] LABS: ALBUMIN 3.1 g/dL (3.4-5.0); ANION GAP 33.3 (8-16); TOTAL BILIRUBIN 0.4 mg/dL (0.0-1.0)
[2017-10-26 12:47] LABS: POTASSIUM 2.7 mmol/L (3.5-5.1)
[2017-10-26 12:48] LABS: CARBON DIOXIDE 9.4 mmol/L (21-32); CREATININE 10.4 mg/dL (0.7-1.3)
--- NOTE | 2017-10-26 12:53 | NUR ---
PT BACK FROM CT AT THIS TIME.
[2017-10-26] MEDS ORDERED: MAG SULF 2000 MG/WATER PREMIX 50 ML IV ONE (13:15)
[2017-10-26] MEDS ORDERED: KCL 20 MEQ/WATER INJ PREMIX 100 ML IV ONE (13:15)
--- NOTE | 2017-10-26 13:15 | NUR ---
ER MD DR SAMSON AT BEDSIDE FOR EVAL
[2017-10-26] MEDS ORDERED: LEVOFLOXACIN 500 MG/D5W PREMIX 100 ML IV ONE (13:45)
--- NOTE | 2017-10-26 13:49 | NUR ---
PT COMPLAINING OF SHARP ABD PAIN 10/10 AT THIS TIME. ER MD SAMSON NOTIFIED. WILL CONTINUE TO MONITOR.
[2017-10-26 14:38] LABS: PROTHROMBIN TIME 11.5 secs (10.8-13.4)
[2017-10-26] MEDS ORDERED: NACL 0.9% 500 ML IV ONE (15:00)
--- NOTE | 2017-10-26 15:06 | NUR ---
CALLED FOR ICU BED. IV RN WILL CALL BACK WITH ROOM
[2017-10-26] MEDS ORDERED: KETOROLAC 30 MG/ML VIAL IVP SCH ×2 (15:40→17:00)
[2017-10-26] MEDS ORDERED: HYDROcodone/APAP 5/325 MG 1 TAB TAB PO PRN (16:20)
[2017-10-26] MEDS ORDERED: ONDANSETRON 4 MG/2 ML VIAL IVP PRN (16:20)
[2017-10-26] MEDS ORDERED: NOREPINEPHRINE 8 MG in DEXTROSE 5% 250 ML IV PRN (16:20)
[2017-10-26] MEDS ORDERED: SODIUM BICARBONATE 8.4% 50 MEQ in DEXTROSE 5% 1,000 ML IV ONE (16:20)
[2017-10-26] MEDS ORDERED: LORazepam 1 MG TAB PO PRN (16:20)
[2017-10-26] MEDS ORDERED: ACETAMINOPHEN 325 MG TAB PO PRN (16:20)
[2017-10-26] MEDS ORDERED: GLUCAGON 1 MG VIAL IVP SCH (16:22)
--- NOTE | 2017-10-26 16:22 | NUR ---
Pt transferred to ICU 3 bed via .
--- NOTE | 2017-10-26 16:25 | NUR ---
Patient will be admitted to care of NARCISA Maya. Admited to ICU. Will go to room 3. Belongings list completed. Pt toloerated transition well.
--- NOTE | 2017-10-26 16:30 | NUR ---
ADMITTED PATIENT FROM ED. REPORT FROM ER NURSE. PATIENT AWAKE, ORIENTED TO PERSON, PLACE, DATE AND TIME. INTACT SKIN. LEFT AC PERIPHERAL IV PATENT AND INTACT. MADE COMFORTABLE IN BED. CALL LIGHT WITHIN REACH. WILL CONTINUE TO MONITOR.
[2017-10-26] MEDS ORDERED: LORazepam 2 MG/ML VIAL IVP SCH (16:50)
[2017-10-26] MEDS: NACL 0.9% 1,000 ML IV SCH ×2 (16:55→21:20)
[2017-10-26] MEDS ORDERED: SODIUM BICARBONATE 8.4% PFS 50 MEQ/50 ML SYR IVP SCH (16:56)
[2017-10-26] MEDS: chlordiazePOXIDE 25 MG CAP PO SCH ×2 (17:00→19:36)
[2017-10-26 17:56] LABS: CHOL/HDL RATIO 2.4 (1-4.5); FREE T4 (FREE THYROXINE) 0.72 ng/dL (0.76-1.46); THYROID STIMULATING HORMONE 2.02 uIU/mL (0.34-3.74)
[2017-10-26] MEDS ORDERED: LEVOFLOXACIN 500 MG/D5W PREMIX 100 ML IV SCH (18:15)
[2017-10-26] MEDS: LACTULOSE 20 GM/30 ML UDC PO SCH ×3 (18:23→20:38)
--- NOTE | 2017-10-26 19:20 | NUR ---
REPORT GIVEN TO NIGHT RN FOR CONTINUITY OF CARE. PATIENT IN STABLE CONDITION.
--- NOTE | 2017-10-26 19:30 | NUR ---
RECEIVED BEDSIDE REPORT FROM MORNING SHIFT RN. MURRELL. PT IS AAO X4,VERBALLY RESPONSIVE, ABLE TO MAKE NEEDS KNOWN. BILATERAL LUNG SOUND ARE CLEAR AND O2 SAT 99% IN ROOM AIR. NO ACUTE DISTRESS NOTED. S1, S2 HEARD. ACTIVE BOWEL SOUND FROM ALL 4 QUADS. PERIPHERAL LINE TO LEFT AC 18G, INTACT AND PATENT. NS RUNNING 200ML/HR. PT ABLE TO MOVE ALL 4 EX'S. DENIES PAIN AT THIS TIME. BED IS LOW POSITION, HOB ELEVATED 30 DEGREE, CALL LIGHT WITHIN REACH. WILL CONTINUE TO MONITOR.
[2017-10-26 20:00] VITALS: BP 95/60
[2017-10-26] MEDS ORDERED: KCL 20 MEQ/WATER INJ PREMIX 200 ML IV ONE (20:35)
[2017-10-26] MEDS: metroNIDAZOLE 500 MG/NS PREMIX 100 ML IV SCH (20:38)
[2017-10-26] MEDS: CALCIUM CARBONATE 500 MG TAB PO SCH (20:38)
[2017-10-26 20:51] LABS: ANION GAP 26.2 (8-16); CARBON DIOXIDE 13.5 mmol/L (21-32); POTASSIUM 3.7 mmol/L (3.5-5.1)
[2017-10-26 20:56] LABS: CREATININE 6.9 mg/dL (0.7-1.3)
--- NOTE | 2017-10-26 21:00 | NUR ---
ADMINISTERED SCHEDULED MEDICATION ORDERED, TOLERATED WELL. NO ACUTE DISTRESS NOTED AT THIS TIME. DENIES PAIN. HOB ELEVATED 30 DEGREE, CALL LIGHT WITHIN REACH. WILL CONTINUE TO MONITOR.
[2017-10-26] MEDS ORDERED: KETOROLAC 15 MG/ML VIAL IVP PRN (21:40)
[2017-10-26 22:00] VITALS: BP 92/56
--- NOTE | 2017-10-26 23:30 | NUR ---
PT COMPLAINT OF ABDOMINAL SHARP PAIN 12/13, ADMINISTERED PRN PAIN MEDICATION ORDERED, TOLERATED WELL. NO ACUTE RESPIRATORY DISTRESS NOTED. BP 112/57 NOTED. SR ON THE MONITOR. WILL CONTINUE TO MONITOR.
[2017-10-27] VITALS (61 sets, daily range): BP systolic 72–154; BP diastolic 45–96
--- NOTE | 2017-10-27 00:50 | NUR ---
PT IS IN ASLEEP, AROUSABLE TO VOICE. NO ACUTE DISTRESS NOTED. BP 78/[address] CASE. DR STATED WILL BE HERE TO CHECK THE PT. PT DENIES PAIN OR ANY DISCOMFORT. O2 SAT 96% ON ROOM AIR. PT STATED I AM SLEEP NOW. WILL CONTINUE TO MONITOR.
--- NOTE | 2017-10-27 01:10 | NUR ---
START LEVOPHED DRIP DUE TO BP 79/45. WILL CONTINUE TO MONITOR.
[2017-10-27] MEDS ORDERED: LORazepam 2 MG/ML VIAL IM/IVP SCH (01:15)
--- NOTE | 2017-10-27 01:30 | NUR ---
DR. CASE STARTS CENTRAL LINE INSERTION, CONSENT IS OBTAINED, US TECH AT BEDSIDE. WILL CONTINUE TO MONITOR.
--- NOTE | 2017-10-27 02:37 | NUR ---
BP 70/48 NOTED, LEVOPHED TITRATED UP TO 6MCG/MIN. NO ACUTE DISTRESS NOTED. PT DENIES ANY PAIN OR DISCOMFORT. NO SOB. O2 SAT 96% ON ROOM AIR. WILL CONTINUE TO MONITOR.
--- NOTE | 2017-10-27 02:45 | NUR ---
BP 70/48 NOTED, LEVOPHED TITRATED UP TO 8MCG/MIN. NO ACUTE DISTRESS NOTED. PT DENIES ANY PAIN OR DISCOMFORT. NO SOB. O2 SAT 99% ON ROOM AIR. WILL CONTINUE TO MONITOR. Addendum: 10/27/17 at 0803 by Ilya Carlos RN BP 69/45. WRONG ENTRY FOR BP.
--- NOTE | 2017-10-27 03:43 | NUR ---
BP 80/50 NOTED, LEVOPHED TITRATED UP TO 10MCG/MIN. NO ACUTE DISTRESS NOTED. PT DENIES ANY PAIN OR DISCOMFORT. NO SOB. O2 SAT 99% ON ROOM AIR. WILL CONTINUE TO MONITOR.
[2017-10-27] MEDS: metroNIDAZOLE 500 MG/NS PREMIX 100 ML IV SCH ×3 (04:50→20:45)
[2017-10-27] MEDS: LACTULOSE 20 GM/30 ML UDC PO SCH ×3 (04:50→20:45)
--- NOTE | 2017-10-27 05:00 | NUR ---
ADMINISTERED SCHEDULED MEDICATION ORDERED, TOLERATED WELL. NO ACUTE DISTRESS NOTED. BP 112/67 WITH LEVOPHED DRIP. SR ON THE MONITOR. CALL LIGHT WITHIN THE REACH. WILL CONTINUE TO MONITOR.
[2017-10-27 05:38] LABS: HEMATOCRIT 28.8 % (36-52); HEMOGLOBIN 9.6 g/dL (12.0-18.0); MEAN CORPUSCULAR HEMOGLOBIN 29 pg (27-31); MEAN CORPUSCULAR HGB CONC 33 g/dL (33-37); MEAN CORPUSCULAR VOLUME 87.9 fL (80-94); PLATELET COUNT (AUTO) 125 K/uL (140-450); RED BLOOD CELL COUNT(AUTO) 3.28 MIL/uL (4.20-6.10); RED CELL DISTRIBUTION WIDTH 15.4 % (11.6-13.7); WHITE BLOOD COUNT (AUTO) 19.9 K/uL (4.8-10.8)
--- NOTE | 2017-10-27 06:00 | NUR ---
PT IS VSS WITH LEVOPHED DRIP. NO ACUTE DISTRESS NOTED. PT HAD SMALL BROWN SOFT BOWEL MOVEMENT. PT ABLE TO USE BED SIDE COMMODE. DENIES PAIN AT THIS TIME. WILL CONTINUE TO MONITOR.
[2017-10-27 06:35] LABS: LYMPHOCYTES % (MANUAL) 8 % (20-46); MONOCYTES % (MANUAL) 4 % (5-12)
[2017-10-27 07:03] LABS: ANION GAP 22.5 (8-16); CARBON DIOXIDE 13.1 mmol/L (21-32); POTASSIUM 3.6 mmol/L (3.5-5.1)
[2017-10-27 07:11] LABS: CREATININE 4.9 mg/dL (0.7-1.3)
[2017-10-27 07:13] LABS: MAGNESIUM 2.3 mg/dL (1.8-2.4); PHOSPHORUS 6.9 mg/dL (2.5-4.9)
--- NOTE | 2017-10-27 07:30 | NUR ---
RECEIVED REPORT FROM NOC SHIFT RN. PT RESTING IN BED COMFORTABLY. A/O X4, ABLE TO VERBALIZE NEEDS. SKIN DRY AND WARM TO TOUCH. PUPILS REACTIVE TO L;IGHT. LUNGS SOUND WHEEZING ON AUSCULTATION. ABDOMEN SOFT, ROUND AND NON-TENDER. ACTIVE BOWEL SOUND. RIGHT IJ TRIPLE LUMEN CATH, INTACT WITH GOOD BLOOD RETURNS. NS RUNNING AT 200 ML/HR, LEVOPHED RUNNING AT 10 MCG/MIN. PERIPHERAL LINES ON RIGHT AND LEFT ARM. INTACT. SKIN INTACT. CALL LIGHT WITHIN REACH. BED IN LOW POSITION LOCKED. WILL CONTINUE TO MONITOR.
--- NOTE | 2017-10-27 07:30 | NUR ---
REPORT GIVEN TO MELISSA FOR CONTINUITY OF CARE.
[2017-10-27] MEDS ORDERED: CALCIUM GLUCONATE 10% 1,000 MG in NACL 0.9% 50 ML IV SCH (08:00)
--- NOTE | 2017-10-27 08:05 | NUR ---
RECEIVED CALLED Addendum: 10/27/17 at 0806 by Gretchen Burns RN RECEIVED CALL FROM DR. ABDALLA. UPDATED PT'S CONDITION AND RECENT LABS. WILL FOLLOW UP ON ORDER.
[2017-10-27] MEDS ORDERED: NACL 0.45% 1,000 ML IV SCH (08:10)
[2017-10-27] MEDS: GEMFIBROZIL 600 MG TAB PO SCH ×2 (09:19→17:38)
[2017-10-27] MEDS: CALCIUM CARBONATE 500 MG TAB PO SCH ×2 (09:20→20:45)
[2017-10-27] MEDS: DOCUSATE 100 MG/10 ML UDC PO SCH (09:20)
[2017-10-27] MEDS: FOLIC ACID 1 MG TAB PO SCH (09:21)
[2017-10-27] MEDS: chlordiazePOXIDE 25 MG CAP PO SCH ×3 (09:21→17:39)
[2017-10-27] MEDS: MULTIVITAMIN 1 TAB PO SCH (09:21)
[2017-10-27] MEDS: PANTOPRAZOLE 40 MG TABEC PO SCH (09:24)
[2017-10-27] MEDS: SODIUM BICARBONATE 8.4% 75 MEQ in NACL 0.45% 1,000 ML IV SCH ×3 (09:57→23:12)
--- NOTE | 2017-10-27 10:00 | NUR ---
PT THREW UP X1, HAD DIARRHEA X1. NOTIFIED DR. ABDALLA. PT DENIES NAUSEA AFTER A EPISODE.
--- NOTE | 2017-10-27 10:10 | NUR ---
DECREASED RATE OF BICARBONATE RATE TO 150 ML/HR PER DR. RM VIVAR.
--- NOTE | 2017-10-27 10:16 | NUR ---
PT SEEN BY DR. ABDALLA. UPDATED PT CONDITION. WILL FOLLOW UP ON ORDER.
--- NOTE | 2017-10-27 10:43 | NUR ---
ECHO AT BEDSIDE. PT ON STABLE CONDITION.
--- NOTE | 2017-10-27 11:04 | NUR ---
CM NOTE PER FILM PROCESSING UTILITY WORKER ERIC, SEND REVIEWS TO BOTH [place] AND [facility]. INITIAL REVIEW FAXED TO [facility] [phone] PH# [phone] [facility] EXT [id number] AND TO [facility] [phone] PH# [phone].
--- NOTE | 2017-10-27 11:34 | NUR ---
PATIENT HAS BEEN SCREENED AND CATEGORIZED MODERATE NUTRITION RISK. PATIENT WILL BE SEEN WITHIN 3-5 DAYS OF ADMISSION. 10/29/17 - 10/31/[address] Addendum: 10/27/17 at [address] PATIENT HAS BEEN RESCREENED AND RECATEGORIZED HIGH NUTRITION RISK. PATIENT WILL BE SEEN WITHIN 1-2 DAYS OF ADMISSION. 10/27/17 - 10/28/[address]
--- NOTE | 2017-10-27 12:47 | NUR ---
CONDOM CATHETER APPLIED PER ORDER.
--- NOTE | 2017-10-27 12:52 | NUR ---
PT HAD DIARRHEA X3. LACTULOSE NOT ADMINISTERED.
--- NOTE | 2017-10-27 13:40 | NUR ---
SEEN BY DR. DE LA CRUZ. UPDATED PT CONDITION AND ABOUT PT THREW UP.
--- NOTE | 2017-10-27 14:25 | NUR ---
PAGED DR. TURNER TO NOTIFY PT'S VOMITING. WAITING FOR CALL BACK. Addendum: 10/27/17 at 1432 by Gretchen Burns RN WRONG CHARTING
--- NOTE | 2017-10-27 14:26 | NUR ---
CALLED DR. ZIMMERMAN NOTED ABOUT PT CONTINUOUS VOMITING AND INCREASED BP 157/88 SAID WILL COME TO SEE PT. Addendum: 10/27/17 at 1432 by Gretchen Burns RN WRONG CHARTING
--- NOTE | 2017-10-27 14:55 | NUR ---
SEEN BY DR. JEFFERSON NOTED ABOUT PT VOMITING X1 AND DIARRHEA. WILL FOLLOW UP ON ORDER.
[2017-10-27 15:50] LABS: ANION GAP 21.6 (8-16); CARBON DIOXIDE 16.8 mmol/L (21-32); CREATININE 3.6 mg/dL (0.7-1.3); POTASSIUM 3.4 mmol/L (3.5-5.1)
--- NOTE | 2017-10-27 16:13 | NUR ---
FAMILY AT BEDSIDE. UPDATED PT CONDITION.
--- NOTE | 2017-10-27 16:13 | NUR ---
CALLED DR. ZIMMERMAN. NOTIFIED ABOUT STOPPED LEVOPHED AND BP 149/87. NOTIFIED ABOUT PT HAVING DIARRHEA. OKAY TO HELD LACTULOSE TOADY.
[2017-10-27 16:24] LABS: CKMB RELATIVE INDEX 1.4 (0.0-2.5); CREATINE KINASE MB 9.5 ng/mL (0-3.6)
--- NOTE | 2017-10-27 18:07 | NUR ---
PT SEEN BY DR. ZIMMERMAN.
--- NOTE | 2017-10-27 19:20 | NUR ---
RECEIVED BEDSIDE REPORT FROM ALIA.NARCISA. PT IS AWAKE, AAO X4, VERBALLY RESPONSIVE. BILATERAL LUNG SOUND CLEAR. O2 SAT 98% ON O2 2L/M VIA NC. NO FEVER NOTED. VITAL SIGNS ARE STABLE. CENTRAL LINE TO RIGHT IJ, INTACT AND PATENT, NO SIGNS OF INFECTION. RUNNING SODIUM BICARB 150ML/HR NOTED. ACTIVE BOWEL SOUND FROM ALL 4QUADS. SKIN IS WARM TO TOUCH AND INTACT. PT DENIES PAIN OR DISCOMFORT AT THIS TIME. PT ABLE TO MOVE BUE/BLE. HOB ELEVATED. BED IN LOW POSITION. CALL LIGHT WITHIN REACH. WILL CONTINUE TO MONITOR.
--- NOTE | 2017-10-27 19:21 | NUR ---
ENDORSED TO NOC SHIFT RN FOR CONTINUITY OF CARE. PT ON STABLE CONDITION.
--- NOTE | 2017-10-27 20:49 | NUR ---
ADMINISTERED SCHEDULED MEDICATIONS ORDERED, TOLERATED WELL. NO ACUTE DISTRESS NOTED. DENIES PAIN OR DISCOMFORT. VSS. WILL CONTINUE TO MONITOR.
--- NOTE | 2017-10-27 22:00 | NUR ---
PT HAD BOWEL MOVEMENT, ABLE TO USE BEDSIDE COMMODE. SMALL AMOUNT OF BROWN DIARRHEA NOTED. PT DENIES ANY ABDOMINAL PAIN OR DISCOMFORT. ABLE TO COLLECT UA SAMPLE BY CLEAN CATCH. NO ACUTE DISTRESS NOTED. WILL CONTINUE TO MONITOR.
--- NOTE | 2017-10-27 23:00 | NUR ---
PT IS IN ASLEEP, AROUSABLE TO VOICE. VSS. NO ACUTE DISTRESS NOTED. DENIES PAIN OR DISCOMFORT. WILL CONTINUE TO MONITOR.
[2017-10-28] VITALS (9 sets, daily range): BP systolic 109–156; BP diastolic 73–86
--- NOTE | 2017-10-28 01:00 | NUR ---
PT IS IN ASLEEP, AROUSABLE TO VOICE. NO ACUTE DISTRESS NOTED. BP 154/88, HR 91 NOTED. PT DENIES PAIN. NO FEVER NOTED. SR ON THE MONITOR. CALL LIGHT WITHIN THE REACH. WILL CONTINUE TO MONITOR.
[2017-10-28 01:50] LABS: APPEARANCE,URINE CLEAR (CLEAR); BILIRUBIN,URINE NEGATIVE (NEGATIVE); BLOOD, URINE TRACE-I (NEGATIVE); COLOR,URINE YELLOW (YELLOW); LEUKOCYTE ESTERASE ,URINE NEGATIVE (NEGATIVE); NITRITE, URINE NEGATIVE (NEGATIVE); PH,URINE 5.5 (5.0-9.0); UGLUCOSE NEGATIVE (NEGATIVE)
[2017-10-28 02:01] LABS: BARBITURATE, URINE NEG. ng/ml (NEG <=200); BENZODIAZEPINE, URINE NEG. ng/mL (NEG <=200); COCAINE, URINE NEG. ng/mL (NEG <=300); OPIATE, URINE NEG. ng/mL (NEG <=2000)
[2017-10-28 02:11] LABS: CANNABINOID, URINE NEG. ng/mL (NEG <=50); PHENCYCLIDINE SCREEN,URINE NEG. ng/mL (NEG <=25)
--- NOTE | 2017-10-28 03:00 | NUR ---
PT IS RESTING IN BED WITHOUT ANY STRESS, AAO X4. VSS NOTED. DENIES PAIN. WILL CONTINUE TO MONITOR.
[2017-10-28 03:08] LABS: RBC,URINE 0-5 (RARE) /HPF (0-5); WBC,URINE 0-5 (RARE) /HPF (0-5)
--- NOTE | 2017-10-28 04:55 | NUR ---
PT IS IN ASLEEP, AROUSABLE TO VOICE. NO ACUTE DISTRESS NOTED. DENIES PAIN OR DISCOMFORT. VSS. WILL CONTINUE TO MONITOR.
[2017-10-28] MEDS: SODIUM BICARBONATE 8.4% 75 MEQ in NACL 0.45% 1,000 ML IV SCH ×3 (05:31→15:22)
[2017-10-28] MEDS: LACTULOSE 20 GM/30 ML UDC PO SCH (05:35)
[2017-10-28] MEDS: metroNIDAZOLE 500 MG/NS PREMIX 100 ML IV SCH ×2 (05:35→13:22)
--- NOTE | 2017-10-28 05:40 | NUR ---
ADMINISTERED SCHEDULED MEDICATION ORDERED, TOLERATED WELL. NO ACUTE DISTRESS NOTED. DENIES PAIN OR DISCOMFORT. SR ON THE MONITOR. CALL LIGHT WITHIN REACH. WILL CONTINUE TO MONITOR.
[2017-10-28 05:56] LABS: MAGNESIUM 1.6 mg/dL (1.8-2.4)
[2017-10-28 06:00] LABS: CARBON DIOXIDE 19.6 mmol/L (21-32); CREATININE 2.1 mg/dL (0.7-1.3)
[2017-10-28 06:06] LABS: POTASSIUM 2.6 mmol/L (3.5-5.1)
[2017-10-28] MEDS ORDERED: MAG SULF 2000 MG/WATER PREMIX 100 ML IV SCH (06:45)
--- NOTE | 2017-10-28 06:50 | NUR ---
AT BEDSIDE TO CHECK THE PT, WILL FOLLOW ORDER.
[2017-10-28] MEDS ORDERED: POTASSIUM CHLORIDE 40 MEQ, LIDOCAINE 1% 25 MG in NACL 0.9% 250 ML IV SCH (07:00)
[2017-10-28 07:07] LABS: BASOPHILS % (AUTO) 0.4 % (0.0-2.0); EOSINOPHILS % (AUTO) 0.1 % (0.0-4.0); HEMATOCRIT 27.1 % (36-52); HEMOGLOBIN 9.3 g/dL (12.0-18.0); LYMPHOCYTES # (AUTO) 1.6 K/uL (2.0-11.5); LYMPHOCYTES % (AUTO) 18.1 % (20.5-51.1); MEAN CORPUSCULAR HEMOGLOBIN 30 pg (27-31); MEAN CORPUSCULAR HGB CONC 34 g/dL (33-37); MEAN CORPUSCULAR VOLUME 86.9 fL (80-94); MONOCYTES # (AUTO) 0.7 K/uL (0.8-1.0); MONOCYTES % (AUTO) 8.1 % (1.7-9.3); NEUTROPHILS # (AUTO) 6.6 K/uL (1.8-7.7); NEUTROPHILS % (AUTO) 73.3 % (42.2-75.2); RED BLOOD CELL COUNT(AUTO) 3.12 MIL/uL (4.20-6.10); RED CELL DISTRIBUTION WIDTH 15.8 % (11.6-13.7); WHITE BLOOD COUNT (AUTO) 9.1 K/uL (4.8-10.8)
[2017-10-28 07:11] LABS: PLATELET COUNT (AUTO) 86 K/uL (140-450)
--- NOTE | 2017-10-28 07:20 | NUR ---
BEDSIDE REPORT GIVEN TO MELISSA.
--- NOTE | 2017-10-28 07:20 | NUR ---
RECEIVED REPORT FROM NOC SHIFT RN. PT RESTING IN BED, AWAKE. A/O X4, VERBALIZES. PUPILS REACTIVE TO LIGHT. SKIN DRY AND WARM TO TOUCH. LUNGS SOUND DIMINISHED ON AUSCULTATION. RIGHT IJ TRIPLE LUMEN CATH INTACT WITH GOOD BLOOD RETURNS. MG 2 GM IS RUNNING. SODIUM BICARBONATE RUNNING AT 150 ML/HR. PERIPHERAL LINE ON LEFT AC INTACT. ABDOMEN SOFT, ROUND AND NON-TENDER. ACTIVE BOWEL SOUND PRESENT IN ALL FOUR QUADRANTS. KEPT HOB ELEVATED. BED IN LOW POSITION LOCKED. CALL LIGHT WITHIN REACH. WILL CONTINUE TO MONITOR.
[2017-10-28] MEDS: GEMFIBROZIL 600 MG TAB PO SCH ×2 (07:41→16:36)
[2017-10-28] MEDS: PANTOPRAZOLE 40 MG TABEC PO SCH (07:41)
--- NOTE | 2017-10-28 08:29 | NUR ---
PT SEEN BY DR. TADEO AND RESIDENT GROUP. UPDATED PT CONDITION, NOTIFIED ABOUT HAVING DIARRHEA. ORDERED TO HOLD STOOL SOFTNER FOR NOW. WILL WILL FOLLOW UP ON ORDER.
[2017-10-28] MEDS: CLINICAL MONITORING MC SCH (09:00)
[2017-10-28] MEDS: DOCUSATE 100 MG/10 ML UDC PO SCH (09:00)
[2017-10-28] MEDS ORDERED: LEVOFLOXACIN 250 MG/D5 PREMIX 50 ML IV SCH (09:00)
[2017-10-28] MEDS: chlordiazePOXIDE 25 MG CAP PO SCH ×3 (09:18→16:38)
[2017-10-28] MEDS: MULTIVITAMIN 1 TAB PO SCH (09:19)
[2017-10-28] MEDS: CALCIUM CARBONATE 500 MG TAB PO SCH ×2 (09:19→20:33)
[2017-10-28] MEDS: FOLIC ACID 1 MG TAB PO SCH (09:20)
--- NOTE | 2017-10-28 09:29 | NUR ---
PT SEEN BY DR. ABDALLA. UPDATED PT CONDITION. WILL FOLLOW UP ON ORDER.
--- NOTE | 2017-10-28 09:30 | NUR ---
CALLED HAVE HER TALK WITH DR. ABDALLA PER REQUEST.
--- NOTE | 2017-10-28 09:48 | NUR ---
DR. BLANCA AT BEDSIDE EVALUATING PT. WILL FOLLOW UP ON ORDER.
[2017-10-28] MEDS ORDERED: POTASSIUM CHLORIDE 10 MEQ TABER PO SCH (10:00)
--- NOTE | 2017-10-28 10:45 | NUR ---
PT SEEN BY DR. BROOKE.
--- NOTE | 2017-10-28 11:51 | NUR ---
PT EATING LUNCH AT THIS TIME. AT BEDSIDE.
--- NOTE | 2017-10-28 13:06 | NUR ---
MICHELE NOTE RECEIVED NOTIFICATION FROM [facility] STATING THAT SERVICES ARE FULLY DELEGATED TO [facility]. FAXED CONCURRENT REVIEW TO [facility] [phone] MICHELE POE # [phone].
--- NOTE | 2017-10-28 14:12 | NUR ---
PT RESTING IN BED COMFORTABLY. SR ON MONITOR. NO CHANGE IN LOC. WILL CONTINUE TO MONITOR.
--- NOTE | 2017-10-28 14:43 | NUR ---
10/28/17 RD INITIAL ASSESSMENT COMPLETED PLEASE REFER TO NUTRITION ASSESSMENT UNDER CARE ACTIVITY FOR ESTIMATED NUTRITIONAL NEEDS. 1. CONTINUE CLEAR LIQUID DIET MEDICALLY NECESSARY 2. WHEN MEDICALLY APPROPRIATE, ADVANCE TO CARDIAC DIET TOLERATED 3. RD TO FOLLOW-UP 3-5 DAYS, MODERATE RISK UDAY MORTON, TRENT
--- NOTE | 2017-10-28 15:50 | NUR ---
SEEN BY DR. HARRIS. WILL FOLLOW UP ON ORDER.
--- NOTE | 2017-10-28 16:55 | NUR ---
SEEN BY DR. JEFFERSON
[2017-10-28 17:36] LABS: ANION GAP 13.6 (8-16); CARBON DIOXIDE 22.5 mmol/L (21-32); CREATININE 1.6 mg/dL (0.7-1.3); POTASSIUM 3.1 mmol/L (3.5-5.1)
--- NOTE | 2017-10-28 17:46 | NUR ---
DR. ZIMMERMAN MADE AWARE ABOUT BLOODY DIARRHEA. PAGED DR. JEFFERSON. WAITING FOR CALL BACK.
--- NOTE | 2017-10-28 18:05 | NUR ---
PAGED DR. JEFFERSON X2. WAITING FOR CALL BACK.
--- NOTE | 2017-10-28 18:52 | NUR ---
PT RESTING IN BED COMFORTABLY. NO ACUTE DISTRESS NOTED. NO CHANGE IN LOC. WILL CONTINUE TO MONITOR.
--- NOTE | 2017-10-28 19:00 | NUR ---
PAGED DR. ABDALLA TO UPDATE LAB RESULT. WAITING FOR CALL BACK.
--- NOTE | 2017-10-28 19:04 | NUR ---
RECEIVED CALL FROM DR NORIEGA. UPDATED PT LAB RESULTS K 3.1. WILL FOLLOW UP ON ORDER.
--- NOTE | 2017-10-28 19:24 | NUR ---
ENDORSED TO NOC SHIFT RN FOR CONTINUITY OF CARE. PT ON STABLE CONDITION.
--- NOTE | 2017-10-28 19:30 | NUR ---
ASSUMED CARE OF PT.INITIAL ASSESSMENT COMPLETED.PT AWAKE ALERT AND ORIENTED X4.SR ON MONITOR.ON ROOM AIR.NO SOB NOTED.TLC TO RT IJ INTACT WITH GOOD BLOOD RETURN TO ALL 3 PORTS INFUSING 1/2NS WITH 75MEQ SODIUM BICARB AT 75ML/HR. AND SALINE LOCK TO LT F/A G18 INTACT.ABDOMEN DISTENDED.PT DENIES N/V.DENIES PAIN.SKIN INTACT. REPOSITIONED.SCD TO BLE FOR DVT PROPHYLAXIS.CALL LIGHT WITHIN REACH.POC D/W PT.
[2017-10-28] MEDS ORDERED: KCL 20 MEQ/WATER INJ PREMIX 300 ML IV SCH (20:15)
--- NOTE | 2017-10-28 21:00 | NUR ---
BM NOTED; SMALL AMT OF SOFT STOOL,BROWNISH IN COLOR.NO BLOOD IN STOOL NOTED.
--- NOTE | 2017-10-28 23:40 | NUR ---
PT AWAKE;C/O PAIN ON SURGICAL SITE.NORCO GIVEN ORDERED.PT DENIES N/V.ABLE TO SELF POSITION
[2017-10-29] VITALS (7 sets, daily range): BP systolic 116–145; BP diastolic 76–103
--- NOTE | 2017-10-29 02:00 | NUR ---
pts condition remains unchanged.afebrile.denies pain.no sob noted
[2017-10-29] MEDS: SODIUM BICARBONATE 8.4% 75 MEQ in NACL 0.45% 1,000 ML IV SCH (02:54)
--- NOTE | 2017-10-29 04:08 | NUR ---
pt asleep;no signs of distress noted.will continue to monitor for any change in condition
[2017-10-29 06:17] LABS: BASOPHILS % (AUTO) 0.3 % (0.0-2.0); EOSINOPHILS % (AUTO) 0.5 % (0.0-4.0); HEMATOCRIT 24.7 % (36-52); HEMOGLOBIN 8.2 g/dL (12.0-18.0); LYMPHOCYTES # (AUTO) 1.5 K/uL (2.0-11.5); LYMPHOCYTES % (AUTO) 24.5 % (20.5-51.1); MEAN CORPUSCULAR HEMOGLOBIN 29 pg (27-31); MEAN CORPUSCULAR HGB CONC 33 g/dL (33-37); MEAN CORPUSCULAR VOLUME 88.1 fL (80-94); MONOCYTES # (AUTO) 0.6 K/uL (0.8-1.0); MONOCYTES % (AUTO) 9.6 % (1.7-9.3); NEUTROPHILS # (AUTO) 3.9 K/uL (1.8-7.7); NEUTROPHILS % (AUTO) 65.1 % (42.2-75.2); PLATELET COUNT (AUTO) 79 K/uL (140-450); RED BLOOD CELL COUNT(AUTO) 2.81 MIL/uL (4.20-6.10); RED CELL DISTRIBUTION WIDTH 15.9 % (11.6-13.7)
--- NOTE | 2017-10-29 06:30 | NUR ---
PT ASLEEP;EASILY AROUSABLE.NO DISTRESS NOTED THIS SHIFT.AFEBRILE.BM NOTED X1, VOIDED FREELY.DENIES PAIN
[2017-10-29 07:02] LABS: ANION GAP 11.8 (8-16); CARBON DIOXIDE 24.6 mmol/L (21-32); CREATININE 1.4 mg/dL (0.7-1.3); POTASSIUM 3.4 mmol/L (3.5-5.1)
--- NOTE | 2017-10-29 07:09 | NUR ---
RECEIVED REPORT FROM NOC SHIFT RN. PT RESTING IN BED COMFORTABLY. A/O X4, VERBALIZES NEEDS. SKIN DRY AND WARM TO TOUCH, AFEBRILE. PUPILS REACTIVE TO LIGHT. LUNGS CLEAR ON AUSCULTATION. RIGHT IJ TRIPLE LUMEN CATH INTACT WITH GOOD BLOOD RETURNS. SODIUMBICARB RUNNING AT 75 ML/HR. PERIPHERAL LINES ON LEFT FOREARM INTACT. ABDOMEN SOFT ROUND AND NON-TENDER. ACTIVE BOWEL SOUND. DENIES PAIN AT THIS TIME. KEPT HOB ELEVATED. BED IN LOW POSITION, LOCKED. WILL CONTINUE TO MONITOR.
--- NOTE | 2017-10-29 07:09 | NUR ---
REPORT GIVEN TO ALIA BREWSTER, NO BLOOD IN STOOL NOTED.PT IN STABLE CONDITION.
[2017-10-29] MEDS: GEMFIBROZIL 600 MG TAB PO SCH ×2 (07:51→16:30)
[2017-10-29] MEDS: PANTOPRAZOLE 40 MG TABEC PO SCH ×2 (07:52→20:21)
--- NOTE | 2017-10-29 08:05 | NUR ---
PT SEEN BY DR. TADEO AND RESIDENT GROUP. UPDATED ABOUT TREANDING DOWN HB AND CALCIUM 7.9. WILL FOLLOW UP ON ORDER.
--- NOTE | 2017-10-29 08:32 | NUR ---
SEEN BY DR. ABDALLA. UPDATED RECENT LABS AND PT'S CONDITION. WILL FOLLOW UP ON ORDER.
--- NOTE | 2017-10-29 08:39 | NUR ---
DR. ZIMMERMAN AT BEDSIDE EVALUATING PT.
[2017-10-29] MEDS ORDERED: NACL 0.45% 1,000 ML IV SCH (08:50)
[2017-10-29] MEDS ORDERED: LACT10SO4 PO (09:13)
[2017-10-29] MEDS ORDERED: OSC500 PO (09:13)
[2017-10-29] MEDS ORDERED: POTA10TE30 PO (09:13)
[2017-10-29] MEDS ORDERED: MAGN241.1 PO (09:13)
[2017-10-29] MEDS ORDERED: LIB25 PO (09:13)
[2017-10-29] MEDS ORDERED: FOLI1TAB90 PO (09:13)
[2017-10-29] MEDS ORDERED: GEMF600T8 PO (09:13)
[2017-10-29] MEDS ORDERED: K PH1TAB6 PO (09:17)
[2017-10-29] MEDS ORDERED: [UNRECOGNIZED DRUG - CODE] (09:17)
--- NOTE | 2017-10-29 09:18 | NUR ---
CM NOTE FAXED CONCURRENT REVIEW TO [facility] [phone] MICHELE DEEPIKA PH# [phone].
[2017-10-29] MEDS: chlordiazePOXIDE 25 MG CAP PO SCH ×3 (09:24→16:31)
[2017-10-29] MEDS: FOLIC ACID 1 MG TAB PO SCH (09:24)
[2017-10-29] MEDS: MULTIVITAMIN 1 TAB PO SCH (09:24)
[2017-10-29] MEDS: CALCIUM CARBONATE 500 MG TAB PO SCH ×2 (09:25→20:21)
[2017-10-29] MEDS: CLINICAL MONITORING MC SCH (09:25)
[2017-10-29] MEDS ORDERED: KCL 20 MEQ/WATER INJ PREMIX 200 ML IV SCH (09:30)
[2017-10-29] MEDS ORDERED: MAG SULF 2000 MG/WATER PREMIX 100 ML IV SCH (09:30)
--- NOTE | 2017-10-29 10:10 | NUR ---
PT AT BEDSIDE. PT HAD STEADY GAIT. ABLE TO WALK.
--- NOTE | 2017-10-29 12:34 | NUR ---
PT EATING LUNCH AT THIS TIME. AT BEDSIDE.
[2017-10-29] MEDS: SODIUM PHOS / POTASSIUM PHOS 1 PKT PDR PO SCH ×2 (13:22→16:31)
--- NOTE | 2017-10-29 13:26 | NUR ---
ADMINISTERED MEDICATION PER ORDER. PT TOLERATING WELL. WILL CONTINUE TO MONITOR.
--- NOTE | 2017-10-29 13:43 | NUR ---
PT SEEN BY DR. JEFFERSON. NOTIFIED THAT PT HAD BLOOD IN STOOL YESTERDAY EVENING. PT STATED WILL FOLLOW UP FOR PROCEDURE ON OUTPATIENT SERVICE FOR BLOOD IN STOOL. PT REFUSED PROCEDURE DURING THIS TIME.
--- NOTE | 2017-10-29 15:49 | NUR ---
PT SEEN BY DR. MARRERO. UPDATED PT CONDITION. WILL FOLLOW UP ON ORDER.
[2017-10-29] MEDS: NACL 0.9% 1,000 ML IV SCH (16:00)
[2017-10-29] MEDS ORDERED: KCL 20 MEQ/WATER INJ PREMIX 100 ML IV SCH (17:00)
--- NOTE | 2017-10-29 17:25 | NUR ---
PAGED DR. JEFFERSON AWAITING FOR CALL BACK.
--- NOTE | 2017-10-29 17:35 | NUR ---
DR. JEFFERSON CALLED BACK, MADE AWARE THAT PATIENT AGREED FOR COLONOSCOPY. WITH NEW ORDERS. ORDERS TRANSCRIBED AND CARRIED OUT. CONSENT SIGNED.
[2017-10-29] MEDS ORDERED: BOWEL EVACUANT DRINK 4,000 ML PDS PO SCH (18:00)
--- NOTE | 2017-10-29 19:17 | NUR ---
REPORT GIVEN TO STEPHY SUAREZ FOR CONTINUITY OF CARE. PT ON STABLE CONDITION.
--- NOTE | 2017-10-29 19:30 | NUR ---
ASSUMED CARE OF PT.INITIAL ASSESSMENT COMPLETED.PT AWAKE ALERT AND ORIENTED.SR ON MONITOR.ON ROOM AIR.TLC TO RT IJ INTACT WITH GOOD BLOOD RETURN TO ALL 3 PORTS,INFUSING ORDERED IVF.ON NPO EXCEPT MEDS.SKIN INTACT.DENIES PAIN.PT REFUSING SCD AT THIS TIME.CALL LIGHT WITHIN REACH.POC D/W PT.
--- NOTE | 2017-10-29 20:00 | NUR ---
BM NOTED.LARGE AMT OF WATERY STOOL.PT STILL TAKING GOLYTELY, FOR COLONOSCOPY IN AM.
[2017-10-29] MEDS ORDERED: MAGNESIUM CITRATE 300 ML BTL PO SCH (21:00)
[2017-10-29 21:48] LABS: ANION GAP 13.9 (8-16); CARBON DIOXIDE 23.2 mmol/L (21-32); CREATININE 1.3 mg/dL (0.7-1.3); POTASSIUM 4.1 mmol/L (3.5-5.1)
--- NOTE | 2017-10-29 22:00 | NUR ---
PT UP TO BEDSIDE COMMODE, BM NOTED LARGE AMT OF LIQUID STOOL,STILL WITH FOOD CONTENT.
[2017-10-30] VITALS: BP 138/93
--- NOTE | 2017-10-30 00:29 | NUR ---
PT ASLEEP AT THIS TIME.EASILY AROUSABLE.MAINTAINED ON NPO POST MIDNIGHT.NO DISTRESS NOTED.DENIES PAIN WHEN ASKED
--- NOTE | 2017-10-30 01:00 | NUR ---
UP TO COMMODE; BM NOTED.NO SOB NOTED ON ROOM AIR.DENIES PAIN
--- NOTE | 2017-10-30 03:11 | NUR ---
PT ASLEEP.NO SIGNS OF DISTRESS NOTED.
[2017-10-30 04:00] VITALS: BP 157/97
--- NOTE | 2017-10-30 05:20 | NUR ---
PT AWAKE.NO SOB NOTED.DENIES PAIN.
[2017-10-30 05:36] LABS: BASOPHILS % (AUTO) 0.4 % (0.0-2.0); EOSINOPHILS # (AUTO) 0.1 K/uL (0-0.4); EOSINOPHILS % (AUTO) 0.8 % (0.0-4.0); HEMATOCRIT 27.5 % (36-52); HEMOGLOBIN 9.1 g/dL (12.0-18.0); LYMPHOCYTES # (AUTO) 1.4 K/uL (2.0-11.5); LYMPHOCYTES % (AUTO) 19.5 % (20.5-51.1); MEAN CORPUSCULAR HEMOGLOBIN 30 pg (27-31); MEAN CORPUSCULAR HGB CONC 33 g/dL (33-37); MEAN CORPUSCULAR VOLUME 89.2 fL (80-94); MONOCYTES # (AUTO) 0.4 K/uL (0.8-1.0); MONOCYTES % (AUTO) 5.5 % (1.7-9.3); NEUTROPHILS # (AUTO) 5.3 K/uL (1.8-7.7); NEUTROPHILS % (AUTO) 73.8 % (42.2-75.2); PLATELET COUNT (AUTO) 97 K/uL (140-450); RED BLOOD CELL COUNT(AUTO) 3.08 MIL/uL (4.20-6.10); RED CELL DISTRIBUTION WIDTH 15.6 % (11.6-13.7); WHITE BLOOD COUNT (AUTO) 7.1 K/uL (4.8-10.8)
--- NOTE | 2017-10-30 06:23 | NUR ---
BM NOTED;LIQUID STOOL, BROWNISH IN COLOR.NO BLOOD IN STOOL NOTED THIS SHIFT. MORNING CARE DONE.PT DENIES PAIN.NO DISTRESS NOTED.
[2017-10-30 06:37] LABS: ANION GAP 13.3 (8-16); CARBON DIOXIDE 25.6 mmol/L (21-32); POTASSIUM 3.9 mmol/L (3.5-5.1)
--- NOTE | 2017-10-30 07:46 | NUR ---
PATIENT TRANSFERRED TO [facility] ROOM 113 AT 0730, REPORT GIVEN TO NARCISA PAN. CALLED KATHY JOE AT THIS TIME AND LEFT MESSAGE ON HER VOICEMAIL TO INFORMED REGARDING TRANSFER. PATIENT IN STABLE CONDITION UPON ON TRANSFER TP [facility], NO BELONGINGS.
--- NOTE | 2017-10-30 07:47 | NUR ---
RECEIVED BEDSIDE REPORT FROM ICU NURSE. PATIENT IS IN STABLE CONDITION. NO SIGNS AND SYMPTOMS OF DISTRESS ON ROOM AIR. PATIENT IS AWAKE, ALERT AND ORIENTEDX4. NO COMPLAINTS AT THIS TIME. JEB TRIPLE LUMEN AND L AC 18G. BOTH SALINE LOCK. CLEAN AND DRY. AMBULATES W ASSISTANCE. GAIT IS STEADY. PATIENT IS NPO FOR COLONOSCOPY. CONTACT PRECAUTIONS FOR HX OF MDRO IN URINE. BED IN LOW POSITION. CALL LIGHT WITHIN REACH. WILL CONTINUE TO MONITOR THE PATIENT.
[2017-10-30 08:00] VITALS: BP 139/97
--- NOTE | 2017-10-30 08:53 | NUR ---
CM NOTE FAXED CONCURRENT REVIEW TO [facility] [phone] MICHELE POE PH# [phone], RADHA PH# [phone]. LEFT MESSAGE TO [facility] MICHELE GARCIA INFORMING HER THAT PATIENT IS STILL ADMITTED AT THE HOSPITAL.
[2017-10-30] MEDS: CLINICAL MONITORING MC SCH (09:00)
[2017-10-30] MEDS: chlordiazePOXIDE 25 MG CAP PO SCH ×2 (10:08→12:46)
[2017-10-30] MEDS: FOLIC ACID 1 MG TAB PO SCH (10:09)
[2017-10-30] MEDS: PANTOPRAZOLE 40 MG TABEC PO SCH (10:09)
[2017-10-30] MEDS: MULTIVITAMIN 1 TAB PO SCH (10:10)
[2017-10-30] MEDS: CALCIUM CARBONATE 500 MG TAB PO SCH ×2 (10:10→21:21)
[2017-10-30] MEDS: SODIUM PHOS / POTASSIUM PHOS 1 PKT PDR PO SCH ×2 (10:11→12:46)
--- NOTE | 2017-10-30 10:14 | NUR ---
ADMINISTERED MORNING MEDS. PATIENT TOLERATED WELL. NO COMPLAINTS AT THIS TIME. BED IN LOW POSITION. CALL LIGHT WITHIN REACH. WILL CONTINUE TO MONITOR THE PATIENT.
[2017-10-30] MEDS: GEMFIBROZIL 600 MG TAB PO SCH ×2 (10:17→17:18)
--- NOTE | 2017-10-30 11:12 | NUR ---
MICHELE ARENAS SPOKE WITH ALIQUIPPA MICHELE POE # [phone] AND SHE SAID SHE HAS SPOKEN WITH DR. MARRERO AND SHE WILL WORK ON THE TRANSFER ORDER TO [facility]. I GAVE HER THE NUMBER TO THE NURSING STATION WHERE PATIENT IS. CHARGE NURSE HIPOLITO SALAZAR. Addendum: 10/30/17 at 1306 by Zulma Rodríguez CM SPOKE WITH PATIENT BEDSIDE AND PATIENT AWARE OF ORDER FOR TRANSFER TO [facility].
[2017-10-30] MEDS: NACL 0.9% 1,000 ML IV SCH (12:51)
--- NOTE | 2017-10-30 12:51 | NUR ---
REMOVED L AC 18G. IV IS INTACT. ADMINISTERED FLUIDS VIA JEB TRIPLE LUMEN CATH. CATH IS CLEAN, DRY AND INTACT. NO COMPLAINTS AT THIS TIME. BED IN LOW POSITION. CALL LIGHT WITHIN REACH. WILL CONTINUE TO MONITOR THE PATIENT.
--- NOTE | 2017-10-30 14:36 | NUR ---
MICHELE NOTE RECEIVED CALL FROM [facility] # [phone] STATING THAT PATIENT CAN GO TO [facility] IN [place] RM [address] CASTREJON, NUMBER TO CALL FOR REPORT PH# [phone]. SPOKE WITH PATIENT AND PATIENT'S KATHY BEDSIDE TO INFORM THEM THAT PER PATIENT'S INSURANCE, PATIENT IS GOING TO [facility] IN [place]. PER PATIENT, HE DOES NOT WANT TO BE TRANSFERRED TO [facility]. PER PATIENT'S KATHY, SHE DOES NOT WANT PATIENT TO BE TRANSFERRED TO [facility]. SPOKE WITH WILMORE MICHELE POE TO INFORM HER THAT PATIENT IS REFUSING TO BE TRANSFERRED TO [facility]. PER WILMORE MCIHELE POE, INFORM PATIENT THAT IF HE REFUSES TO BE TRANSFERRED TO [facility], HE WILL BE FINANCIALLY RESPONSIBLE FOR THIS HOSPITAL STAY. SPOKE WITH PATIENT AND PATIENT'S KATHY TO INFORM THEM THAT PER PATIENT'S INSURANCE, IF PATIENT REFUSES TO BE TRANSFERRED TO CONTRACTED FACILITY, PATIENT WILL BE FINANCIALLY RESPONSIBLE FOR THIS HOSPITAL STAY. PATIENT AND PATIENT'S VERBALIZED UNDERSTANDING AND STATED THAT THEY ARE WILLING TO BE FINANCIALLY RESPONSIBLE FOR THIS HOSPITAL STAY BECAUSE PATIENT DOES NOT WANT TO BE TRANSFERRED TO CONTRACTED HOSPITAL- [facility]. I INFORMED [facility] THAT PATIENT AND PATIENT'S ARE AWARE THAT PATIENT WILL BE FINANCIALLY RESPONSIBLE FOR THIS HOSPITAL STAY BECAUSE HE REFUSED TO BE TRANSFERRED TO CONTRACTED HOSPITAL. PER MICHELE POE, [facility] WILL FAX A DENIAL.
--- NOTE | 2017-10-30 14:50 | NUR ---
GAVE BEDSIDE REPORT TO OR NURSE. PATIENT IS IN STABLE CONDITION. PATIENT LEFT TO GET COLONOSCOPY DONE.
[2017-10-30] MEDS ORDERED: diphenhydrAMINE 50 MG/ML VIAL ONE (15:01)
[2017-10-30] MEDS: fentaNYL 0.05 MG/ML VIAL ONE ×2 (15:01→15:12)
[2017-10-30] MEDS: MIDAZOLAM 2 MG/2 ML VIAL ONE ×2 (15:01→15:14)
--- NOTE | 2017-10-30 15:45 | NUR ---
PATIENT IS BACK FROM PROCEDURE. VITALS ARE B.P 124/84 97% ROOM AIR, 115HR, 20 RESP AND 99.5 TEMP. PATIENT HAS NO COMPLAINTS AT THIS TIME. NO SIGNS OF DISTRESS ON ROOM AIR. BED IN LOW POSITION. CALL LIGHT WITHIN REACH. WILL CONTINUE TO MONITOR THE PATIENT.
--- NOTE | 2017-10-30 15:51 | NUR ---
CM NOTE RECEIVED DENIAL LETTER FROM [facility] STATING TO GIVE A COPY TO THE PATIENT. GAVE COPY OF DENIAL LETTER TO PATIENT WITH MAXIM RN BEDSIDE.
--- NOTE | 2017-10-30 15:51 | NUR ---
EDUCATED THE PATIENT THAT SINCE THEY DENIED [facility] THEY WILL CHARGED FOR THEIR STAY OUT OF POCKET. PATIENT AND VERBALIZED UNDERSTANDING AND HANDOUT GIVEN. CASE MANAGEMENT ALSO EDUCATED PATIENT. WILL CONTINUE TO MONITOR THE PATIENT.
--- NOTE | 2017-10-30 18:12 | NUR ---
AT BEDSIDE. NO COMPLAINTS AT THIS TIME. PATIENT IS EATING HIS DINNER. NO SIGNS OF DISTRESS ON ROOM AIR. BED IN LOW POSITION. CALL LIGHT WITHIN REACH. WILL CONTINUE TO MONITOR THE PATIENT.
--- NOTE | 2017-10-30 19:00 | NUR ---
PLACED A NEW IV ON L AC 22G SALINE LOCK. PAGED DOCTOR JANES EARLIER ABOUT JEB TRIPLE LUMEN CATH IS LEAKING. NO CALL BACK. WILL ENDORSE THE INFORMATION ABOUT THE LEAKING TO CONCRETE PIPE MAKER NURSE.
--- NOTE | 2017-10-30 19:39 | NUR ---
GAVE BEDSIDE REPORT TO MANAGER SURGICAL NURSE. PATIENT IS IN STABLE CONDITION.
--- NOTE | 2017-10-30 19:39 | NUR ---
CORPORATE CONTROLLER NURSE IS AWARE OF R AJ TRIPLE LUMEN CATH LEAKING AND THE PLACEMENT OF THE NEW IV L AC 22G SALINE LOCK.
--- NOTE | 2017-10-30 19:45 | NUR ---
RECEIVED REPORT FROM DAY SHIFT, PATIENT WALKED TO THE RESTROOM AND IS RESTING IN BED AT THIS TIME. NO S/S OF DISTRESS NOTED, RESPIRATION EVEN AND UNLABORED, ON ROOM AIR. IV ON LT AC 22 G PATENT AND INTACT, SALINE LOCK. PER DAY SHIFT RN, THE RT INTERNAL JUGULAR CENTRAL LINE WAS LEAKING, AND NOW IT IS SALINE LOCK. DR. MARRERO WAS PAGED AND STILL WAITING FOR DR. MARRERO TO CALL BACK, BUT PATIENT DOES NOT HAVE ANY IV FLUIDS OR IV ANTIBIOTICS SCHEDULED. EDUCATED PATIENT THAT WE NEED TO CLOSE MONITOR FLUIDS INTAKE AND URINE OUTPUT, SO PATIENT WAS INSTRUCTED TO USE URINAL, PATIENT VERBALIZED UNDERSTANDING, CALL LIGHT WITHIN REACH, SAFETY MEASURE ENSURED, WILL CONTINUE TO MONITOR.
--- NOTE | 2017-10-30 20:00 | NUR ---
OWEN FROM THE INSURANCE ASKED IF THE PATIENT STILL REFUSING TO BE TRANSFERRED TO [facility]. ASKED THE PATIENT AND PATIENT STATED," I WANT TO STAY HERE." INFORMED THE PATIENT THAT HIS INSURANCE DOES NOT COVER HIS STAY HERE AND HE WILL BE CHARGED FOR HIS STAY. PATIENT STATED," I KNOW, I WILL PAY FOR THE STAY." OWEN IS AWARE OF PATIENT'S DECISION.
--- NOTE | 2017-10-30 21:21 | NUR ---
DUE MEDICATION GIVEN, PATIENT TOLERATED WELL. NO S/S OF DISTRESS NOTED, RESPIRATION EVEN AND UNLABORED. DR. MARRERO HAS NOT CALLED BACK YET, BUT CHARGE NURSE IS AWARE OF RIGHT INTERNAL JUGULAR CENTRAL LINE WAS LEAKING AND NOW IS SALINE LOCK. SINCE THERE IS NO IV FLUIDS AND IV ANTIBIOTICS SCHEDULED, CHARGE NURSE SAID ITS OKAY TO LET DOCTOR KNOW TOMORROW.
--- NOTE | 2017-10-30 23:36 | NUR ---
PATIENT IS SLEEPING, NO S/S OF DISTRESS NOTED, RESPIRATION EVEN AND UNLABORED, VITAL SIGNS STABLE. WILL CONTINUE TO MONITOR.
[2017-10-31] VITALS: BP 140/89
--- NOTE | 2017-10-31 03:23 | NUR ---
PATIENT IS SLEEPING, NO S/S OF DISTRESS NOTED, RESPIRATION EVEN AND UNLABORED, ON ROOM AIR. CALL LIGHT WITHIN REACH, SAFETY MEASURE ENSURED, WILL CONTINUE TO MONITOR.
[2017-10-31] MEDS ORDERED: PANTOPRAZOLE 40 MG TABEC PO SCH (06:30)
[2017-10-31] MEDS: GEMFIBROZIL 600 MG TAB PO SCH ×2 (06:33→16:17)
--- NOTE | 2017-10-31 07:10 | NUR ---
ENDORSED PLAN OF CARE TO DAY SHIFT RN, PATIENT IS SLEEPING, NO S/S OF DISTRESS NOTED, PATIENT IS IN STABLE CONDITION.
--- NOTE | 2017-10-31 07:30 | NUR ---
RECEIVED REPORT FROM PUMP ATTENDANT NURSE, PT IS SLEEPING, EASILY AROUSED. OX4, NO S/S OF DISTRESS NOTED, RESPIRATION EVEN AND UNLABORED, ON ROOM AIR. DENIES PAIN. IV ON LT AC 22 G PATENT AND INTACT, SALINE LOCK. RT INTERNAL JUGULAR CENTRAL LINE SALINE LOCK, ASYMPTOMATIC. EDUCATED PT ABOUT STRICT I/O, PATIENT VERBALIZED UNDERSTANDING, CALL LIGHT WITHIN REACH, SAFETY MEASURES IN PLACE, WILL CONTINUE TO MONITOR.
[2017-10-31 07:31] LABS: ANION GAP 9.9 (8-16); CARBON DIOXIDE 28.2 mmol/L (21-32); CREATININE 1.2 mg/dL (0.7-1.3); POTASSIUM 4.1 mmol/L (3.5-5.1)
[2017-10-31 08:00] VITALS: BP 137/84
[2017-10-31] MEDS: FOLIC ACID 1 MG TAB PO SCH (08:22)
[2017-10-31] MEDS: CALCIUM CARBONATE 500 MG TAB PO SCH (08:22)
[2017-10-31] MEDS: MULTIVITAMIN 1 TAB PO SCH (08:23)
[2017-10-31] MEDS: CLINICAL MONITORING MC SCH (08:28)
--- NOTE | 2017-10-31 09:05 | NUR ---
SPOKE WITH DR MARRERO OVER THE PHONE, MADE AWARE LIPASE WAS ELEVATED YESTERDAY(1947), ASKED DR IF LIPASE NEEDS TO BE RECHECKED TODAY. STATED NO.
--- NOTE | 2017-10-31 10:40 | NUR ---
PT SITTING IN THE CHAIR, DENIES ANY PAIN AND DISCOMFORT. EMPTIED URINAL, VOL DOCUMENTED.
[2017-10-31 16:00] VITALS: BP 149/97
[2017-10-31 17:54] LABS: HEMATOCRIT 25.8 % (36-52); HEMOGLOBIN 8.5 g/dL (12.0-18.0)
--- NOTE | 2017-10-31 19:40 | NUR ---
PT DISCHARGED PER MD ORDER. DISCHARGE INSTRUCTION AND MED TEACHING GIVEN. PT VERBALIZED UNDERSTANDING AND SIGNED ALL PAPERWORK. IJ AND IV DC'D, BOTH TIP INTACT, PRESSURE APPLIED, NO BLEEDING NOTED. WRIST BAND REMOVED. PT WAITING IN THE ROOM FOR HIS WHO IS ON THE WAY AND PT IN STABLE CONDITION. BELT CHANGER CHARGE MICHELA IS AWARE.
--- NOTE | 2017-10-31 20:30 | NUR ---
PT DC HOME IN STABLE CONDITION BY WHEELCHAIR ACCOMPANIED BY . ALL PERSONAL BELONGINGS WITH PT.
== END 2017-10-31 20:30 | disposition home or self-care (01) | DRG 871 ==
LOC: MED 11:41 → MIC 15:21 → MNS 10-30 07:38 → MTU 10-30 08:57
PROVIDERS: ADMIT Hospitalist; ATTEND Hospitalist
PROC: 02HV33Z Insertion of Infusion Device into Superior Vena Cava, Percutaneous Approach (ICD-10-PCS; 2017-10-27)
PROC: B548ZZA Ultrasonography of Superior Vena Cava, Guidance (ICD-10-PCS; 2017-10-27)
PROC: 0DBN8ZZ Excision of Sigmoid Colon, Via Natural or Artificial Opening Endoscopic (ICD-10-PCS; principal; 2017-10-30 14:30)
DX: A41.9 Sepsis, unspecified organism (principal); N17.0 Acute kidney failure with tubular necrosis; J96.01 Acute respiratory failure with hypoxia; R65.21 Severe sepsis with septic shock; K52.1 Toxic gastroenteritis and colitis; D69.6 Thrombocytopenia, unspecified; E11.22 Type 2 diabetes mellitus with diabetic chronic kidney disease; K85.20 Alcohol induced acute pancreatitis without necrosis or infection; K57.92 Diverticulitis of intestine, part unspecified, without perforation or abscess without bleeding; E87.1 Hypo-osmolality and hyponatremia; E83.39 Other disorders of phosphorus metabolism; T47.3X5A Adverse effect of saline and osmotic laxatives, initial encounter; E83.42 Hypomagnesemia; D64.9 Anemia, unspecified; I12.9 Hypertensive chronic kidney disease with stage 1 through stage 4 chronic kidney disease, or unspecified chronic kidney disease; N18.9 Chronic kidney disease, unspecified; E83.51 Hypocalcemia; E78.1 Pure hyperglyceridemia; E78.5 Hyperlipidemia, unspecified; E86.0 Dehydration; K63.5 Polyp of colon; K64.8 Other hemorrhoids; F17.200 Nicotine dependence, unspecified, uncomplicated; E66.9 Obesity, unspecified; E87.6 Hypokalemia; R19.7 Diarrhea, unspecified; F10.10 Alcohol abuse, uncomplicated; Y90.7 Blood alcohol level of 200-239 mg/100 ml; Z68.29 Body mass index [BMI] 29.0-29.9, adult; Z79.899 Other long term (current) drug therapy; Z90.49 Acquired absence of other specified parts of digestive tract; Y92.89 Other specified places as the place of occurrence of the external cause; Y92.410 Unspecified street and highway as the place of occurrence of the external cause; V89.2XXA Person injured in unspecified motor-vehicle accident, traffic, initial encounter; Y93.89 Activity, other specified; Y99.8 Other external cause status
CPT/HCPCS: 36415; 36600; 70450; 71045; 71260; 80048; 80053; 80305; 81001; 82140; 82150; 82550; 82553; 82803; 83036; 83605; 83690; 83735; 83880; 84100; 84295; 84439; 84443; 84479; 84484; 85018; 85025; 85610; 85730; 87040; 87081; 87086; 93005; 96360; 97140; 99291; G0482; J0610; J1200; J1610; J1642; J1885; J1956; J2001; J2060; J2250; J3010; J3475; J3480; J3490; J7030; J7060; Q0092; Q9967